=== PATIENT | female | born 1985 | race Caucasian/White ===

== ENCOUNTER 2016-11-08 18:40 | Emergency (ER) | payer OTHER ==
[2016-11-08 20:05] LABS: Hematocrit 38 % (35-47); Hemoglobin 12.7 g/dl (12.0-16.0); Mean Corpuscular HGB Conc 34 g/dl (31-36); Mean Corpuscular Hemoglobin 31 pg (27-31); Mean Corpuscular Volume 91 fL (80-97); Mean Platelet Volume 9 um3 (7.4-10.4); Red Blood Count 4.15 10^6/ul (4.0-5.4); Red Cell Distribution Width 13 % (10.5-15); White Blood Count 9.4 10^3/ul (3.5-10.8)
[2016-11-08 20:20] LABS: Albumin 4.3 g/dL (3.2-5.2); BUN/Creatinine Ratio 22.5 (8-20); Calcium 9.3 mg/dL (8.6-10.3); EGFR African American 107.6 (>60); EGFR Non-African American 83.7 (>60); Potassium 3.8 mmol/L (3.5-5.0); Total Bilirubin 0.4 mg/dL (0.2-1.0); Total Protein 7.3 g/dL (6.4-8.9)
[2016-11-08] MEDS ORDERED: Iohexol 350* (CONTRAST) 500 ML MDV IV ONE (20:25)
[2016-11-08 21:02] VITALS: BP 137/120
--- NOTE | 2016-11-08 21:03 | RAD ---
INDICATION: Chest pain. Back pain. COMPARISON: None back pain TECHNIQUE: Axial source images were obtained from the thoracic inlet to the hemidiaphragms following administration of [address] angiographic technique was utilized. Coronal and sagittal reconstructed images were acquired. CHEST FINDINGS: Neck/thyroid: The visualized neck to include the thyroid appear normal. Chest wall: There are no acute abnormalities of the bony thorax or chest wall. There is no supraclavicular, infraclavicular, or axillary lymphadenopathy. Lungs : There are no pulmonary parenchymal masses or infiltrates. The pulmonary interstitium appears normal. There are no endobronchial lesions. Cardiomediastinal structures: There is no CT evidence of acute pulmonary embolic disease. The heart is normal in size. There is no pericardial effusion. Although the examination was timed to evaluate for acute pulmonary embolus, there is also adequate systemic arterial opacification. There is no evidence of aortic aneurysm or dissection. There is no mediastinal or hilar adenopathy. The esophagus appears normal. Pleura : There are no pleural-based masses or effusions. Other: None. IMPRESSION: NO CT EVIDENCE OF ACUTE EMBOLIC DISEASE. ALTHOUGH THERE IS SUBOPTIMAL AORTIC OPACIFICATION, NO ABNORMALITIES ARE IDENTIFIED. LUNGS CLEAR.
--- NOTE | 2016-11-08 21:54 | ED ---
Heidy Gomez Michael, scribed for Saud Rome MD on 11/08/16 at 2004 . HPI Chest Pain - HPI Summary HPI Summary: 31 y/o female comes to the ED presenting with chest pain that started one day ago and worsened through out the day. The pt describes the chest pain as pressure/tightness. Earlier this afternoon the chest pressure radiated to the jaw and back, but currently it has slightly alleviated spontaneously. She also c /o diaphoresis and diarrhea. The pt denies SOB, flank pain, and abd pain. The PMHx is significant for vertebral artery dissections. - History of Current Complaint Chief Complaint: ED Time Seen by Provider: 11/08/16 19:46 Hx Obtained From: Patient, Medical Records Onset/Duration: Started Days Ago, Still Present Timing: Intermittent Initial Severity: Moderate Current Severity: Mild Pain Intensity: 0 Pain Scale Used: 0-10 Numeric Chest Pain Location: Diffuse Chest Pain Radiates: Yes Chest Pain Radiates To:: Back, Jaw Character: Pressure/Squeezing, Tightness Aggravating Factor(s): Nothing Alleviating Factor(s): Spontaneous Resolution Associated Signs and Symptoms: Positive: Negative - flank pain, Chest Pain, Diaphoresis, Other: - diarrhea. Negative: Shortness of Breath, Abdominal Pain - Additional Pertinent History Primary Care Physician: [id number] - Allergy/Home Medications Allergies/Adverse Reactions: Allergies Allergy/AdvReac Type Severity Reaction Status Date / Time Amoxicillin Allergy Hives Verified 11/08/16 20:04 Erythromycin Allergy Hives Verified 11/08/16 20:04 Penicillin G Allergy Hives Verified 11/08/16 20:04 Sulfa Antibiotics Allergy Hives Verified 11/08/16 20:04 Tetracycline Allergy Hives Verified 11/08/16 20:04 pediasole Allergy Hives Uncoded 11/08/16 20:04 Home Medications: Home Medications Naproxen [Naproxen 500 MG TABS] 500 mg PO BID 11/08/16 [History Confirmed ] PMH/Surg Hx/FS Hx/Imm Hx Endocrine/Hematology History: Reports: Hx Anemia - current Denies: Hx Diabetes, Hx Systemic Lupus Erythematosus Cardiovascular History: Reports: Hx Syncope - in the ED this visit Denies: Hx Congestive Heart Failure, Hx Hypertension, Hx Pacemaker/ICD GI History: Reports: Hx Gastroesophageal Reflux Disease, Hx Hiatal Hernia History: Reports: Other Problems/Disorders - frequent blood in urine and frequent urination Denies: Hx Dialysis, Hx Renal Disease Musculoskeletal History: Denies: Hx Rheumatoid Arthritis Sensory History: Denies: Hx Hearing Aid Neurological History: Reports: Hx Headaches, Hx Migraine, Hx Transient Ischemic Attacks (TIA) Psychiatric History: Reports: Hx Anxiety Denies: Hx Panic Disorder - Surgical History Surgery Procedure, Year, and Place: RT KNEE MENISCUS & ACL RECONSTRUCTION 05/2014 ; DOUBLE HERNIA; WISDOM TEETH, Abdominal surgery to drain internal bleeding March 2016 [facility] Hx Anesthesia Reactions: No Infectious Disease History: No Infectious Disease History: Denies: Traveled Outside the [place] in Last 30 Days - Family History Known Family History: Positive: None - Social History Occupation: Employed Full-time Lives: With Family Alcohol Use: Rare Substance Use Type: Reports: None Smoking Status (MU): Never Smoked Tobacco Type: Cigarettes Review of Systems Positive: Skin Diaphoresis. Negative: Fever Positive: Chest Pain Negative: Shortness Of Breath Positive: Diarrhea. Negative: Abdominal Pain Negative: flank pain All Other Systems Reviewed And Are Negative: Yes Physical Exam - Summary Physical Exam Summary: General: Comfortable, pleasant, alert HEENT: Moist mucosa Neck: soft, supple, no adenopathy, no edema Heart: S1, S2, RRR, no murmurs, rubs, or gallops, bilateral radial carotid pulses 2+, no carotid bruits Lungs: Clear to auscultation, breathing comfortable, no wheezes or rales Abdominal: Soft, flat, nontender Extremities: No edema, no calf tenderness, negative Homans sign Neuro: Alert and oriented x 3 Psych: Logical, coherent Triage Information Reviewed: Yes Vital Signs On Initial Exam: Initial Vitals Temp Pulse Resp BP Pulse Ox 98.6 F 68 18 118/89 98 11/08/16 18:49 11/08/16 18:49 11/08/16 18:49 11/08/16 18:49 11/08/16 18:49 Vital Signs Reviewed: Yes Diagnostics - Vital Signs Vital Signs Temp Pulse Resp BP Pulse Ox 11/08/16 18:49 98.6 F 68 18 118/89 98 - Laboratory Lab Results: Lab Results 11/08/16 11/08/16 Range/Units 19:55 19:55 WBC 9.4 (3.5-10.8) 10^3/ul RBC 4.15 (4.0-5.4) 10^6/ul Hgb 12.7 (12.0-16.0) g/dl Hct 38 (35-47) % MCV 91 (80-97) fL MCH 31 (27-31) pg MCHC 34 (31-36) g/dl RDW 13 (10.5-15) % Plt Count 274 (150-450) 10^3/ul MPV 9 (7.4-10.4) um3 Neut % (Auto) 55.6 (38-83) % Lymph % (Auto) 35.6 (25-47) % Pettis % (Auto) 5.9 (1-9) % Eos % (Auto) 1.8 (0-6) % Baso % (Auto) 1.1 (0-2) % Absolute Neuts (auto) 5.2 (1.5-7.7) 10^3/ul Absolute Lymphs (auto) 3.3 (1.0-4.8) 10^3/ul Absolute Monos (auto) 0.6 (0-0.8) 10^3/ul Absolute Eos (auto) 0.2 (0-0.6) 10^3/ul Absolute Basos (auto) 0.1 (0-0.2) 10^3/ul Absolute Nucleated RBC 0 10^3/ul Nucleated RBC % 0 Sodium 135 (133-145) mmol/L Potassium 3.8 (3.5-5.0) mmol/L Chloride 103 (101-111) mmol/L Carbon Dioxide 27 (22-32) mmol/L Anion Gap 5 (2-11) mmol/L BUN 18 (6-24) mg/dL Creatinine 0.80 (0.51-0.95) mg/dL Est GFR ( Amer) 107.6 (>60) Est GFR (Non-Af Amer) 83.7 (>60) BUN/Creatinine Ratio 22.5 H (8-20) Glucose 93 (70-100) mg/dL Calcium 9.3 (8.6-10.3) mg/dL Total Bilirubin 0.40 (0.2-1.0) mg/dL AST 14 (13-39) U/L ALT 11 (7-52) U/L Alkaline Phosphatase 74 (34-104) U/L Troponin I 0.00 (<0.04) ng/mL Total Protein 7.3 (6.4-8.9) g/dL Albumin 4.3 (3.2-5.2) g/dL Globulin 3.0 (2-4) g/dL Albumin/Globulin Ratio 1.4 (1-3) Result Diagrams: 11/08/16 19:55 11/08/16 19:55 Lab Statement: Any lab studies that have been ordered have been reviewed, and results considered in the medical decision making process. - CT CTA Chest/Thorax CT Interpretation: No Acute Changes - NO CT EVIDENCE OF ACUTE EMBOLIC DISEASE. ALTHOUGH THERE IS SUBOPTIMAL AORTIC OPACIFICATION, NO ABNORMALITIES ARE IDENTIFIED. LUNGS CLEAR. CT Interpretation Completed By: Radiologist - EKG EK EKG Rhythm: Sinus Rhythm EKG Interpretation: no st changes Chest Pain Course/Dx - Course Assessment/Plan: Chest pressure started last night and continued into today. It was waxing and waning. And non pleuriting. Somewhat involved in upper back pain. No hx of CAD, but she does have vertebral artery dissection. Shes on Plavix and well protected against occlusive coronary events. The discomfort is atypical most concerned with dissection and CTA is mostly normal. She will be discharged home and return for worsening symptoms. - Chest Pain Differential Diagnosis/HQI/PQRI: Acute UT, Angina, Lower Respiratory Infection, Pulmonary Edema, Pulmonary Embolism - Diagnoses Provider Diagnoses: Chest pain Discharge - Discharge Plan Condition: Good Disposition: HOME Patient Education Materials: Noncardiac Chest Pain (ED) Referrals: Luli Macdonald MD [Primary Care Provider] - 1 Day The documentation as recorded by the Heidy peres Michael accurately reflects the service I personally performed and the decisions made by Latricia powers Farzad, MD.
== END 2016-11-08 21:06 | disposition home or self-care (01) ==
LOC: ED 18:40
DX: R07.9 Chest pain, unspecified (principal); D64.9 Anemia, unspecified; Z88.0 Allergy status to penicillin
CPT/HCPCS: 36415; 71275; 80053; 84484; 85025; 93005; Q9967

== ENCOUNTER 2016-11-16 11:43 | Emergency (ER) | payer OTHER ==
[2016-11-16] MEDS ORDERED: NS 0.9% 1000 ML* 1,000 ML IV SCH (12:15)
[2016-11-16 13:07] LABS: Urine Bacteria Absent (Absent); Urine Bilirubin Negative (Negative); Urine Glucose Negative (Negative); Urine Nitrite Negative (Negative)
[2016-11-16 13:22] LABS: Hematocrit 39 % (35-47); Hemoglobin 13.1 g/dl (12.0-16.0); Mean Corpuscular HGB Conc 34 g/dl (31-36); Mean Corpuscular Hemoglobin 31 pg (27-31); Mean Corpuscular Volume 91 fL (80-97); Mean Platelet Volume 10 um3 (7.4-10.4); Red Blood Count 4.25 10^6/ul (4.0-5.4); Red Cell Distribution Width 14 % (10.5-15); White Blood Count 7.9 10^3/ul (3.5-10.8)
[2016-11-16 13:34] LABS: ALT 12 U/L (7-52); AST 13 U/L (13-39); Albumin 4.5 g/dL (3.2-5.2); Alkaline Phosphatase 66 U/L (34-104); Anion Gap 7 mmol/L (2-11); BUN/Creatinine Ratio 16.3 (8-20); Blood Urea Nitrogen 13 mg/dL (6-24); C Reactive Protein 1.26 mg/L (< 5.00); CO2 Carbon Dioxide 23 mmol/L (22-32); Calcium 9.7 mg/dL (8.6-10.3); Chloride 105 mmol/L (101-111); Creatine Kinase 17 U/L (10-223); EGFR African American 107.6 (>60); EGFR Non-African American 83.7 (>60); Globulin 3.1 g/dL (2-4); Glucose 79 mg/dL (70-100); Lipase 14 U/L (11.0-82.0); Magnesium 2.1 mg/dL (1.9-2.7); Potassium 3.7 mmol/L (3.5-5.0); Sodium 135 mmol/L (133-145); Total Protein 7.6 g/dL (6.4-8.9)
[2016-11-16 13:53] LABS: TSH (Thyroid Stimulating Horm) 2.86 mcIU/mL (0.34-5.60)
[2016-11-16 16:18] VITALS: BP 114/75
--- NOTE | 2016-11-16 19:34 | ED ---
Kailash Gomez Matthew, scribed for Pierre Brown MD on 11/16/16 at 1557 . HPI Chest Pain - HPI Summary HPI Summary: A 31 y/o female presents to the ED with chest pain across the chest since a week ago. The pain is currently rated 4/10 in severity. She was seen last week for a similar pain; however the pain has been gradually worsening. Associated symptoms include abdominal pain that started today and is described as sharp as well as mid back pain since 5 days ago that is worse on the left. She's also c/ o of fatigue. The patient denies SOB. She has a Hx of left and right vertebral artery dissections. She's also worried about an abnormal lab value, which she saw during her last work-up. - History of Current Complaint Chief Complaint: EDChestPainROMI Time Seen by Provider: 11/16/16 15:24 Hx Obtained From: Patient Onset/Duration: Started Weeks Ago, Atraumatic, Still Present Timing: Constant Initial Severity: Mild Current Severity: Moderate Pain Intensity: 4 Pain Scale Used: 0-10 Numeric Chest Pain Location: Mid Sternal - across the chest Chest Pain Radiates: No Aggravating Factor(s): Nothing Alleviating Factor(s): Nothing Associated Signs and Symptoms: Positive: Chest Pain, Back Pain - mid; worse on the left, Abdominal Pain - dsecribed as sharp, Other: - fatigue. Negative: Shortness of Breath - Additional Pertinent History Primary Care Physician: [id number] - Allergy/Home Medications Allergies/Adverse Reactions: Allergies Allergy/AdvReac Type Severity Reaction Status Date / Time Amoxicillin Allergy Hives Verified 11/16/16 11:54 Erythromycin Allergy Hives Verified 11/16/16 11:54 Penicillin G Allergy Hives Verified 11/16/16 11:54 Sulfa Antibiotics Allergy Hives Verified 11/16/16 11:54 Tetracycline Allergy Hives Verified 11/16/16 11:54 pediasole Allergy Hives Uncoded 11/08/16 20:04 Home Medications: Home Medications Clopidogrel TAB* [Plavix TAB*] 75 mg PO DAILY 11/16/16 [History Confirmed ] Diazepam TAB(*) [Valium TAB(*)] 5 mg PO BID PRN 11/16/16 [History Confirmed ] Naproxen TAB* [Naprosyn TAB*] 250 mg PO Q8H PRN 11/16/16 [History Confirmed ] PMH/Surg Hx/FS Hx/Imm Hx Endocrine/Hematology History: Reports: Hx Anemia - current Denies: Hx Diabetes, Hx Systemic Lupus Erythematosus Cardiovascular History: Reports: Hx Syncope - in the ED this visit Denies: Hx Congestive Heart Failure, Hx Hypertension, Hx Pacemaker/ICD GI History: Reports: Hx Gastroesophageal Reflux Disease, Hx Hiatal Hernia History: Reports: Other Problems/Disorders - frequent blood in urine and frequent urination Denies: Hx Dialysis, Hx Renal Disease Musculoskeletal History: Denies: Hx Rheumatoid Arthritis Sensory History: Denies: Hx Hearing Aid Neurological History: Reports: Hx Headaches, Hx Migraine, Hx Transient Ischemic Attacks (TIA) Psychiatric History: Reports: Hx Anxiety Denies: Hx Panic Disorder - Surgical History Surgery Procedure, Year, and Place: RT KNEE MENISCUS & ACL RECONSTRUCTION 05/2014 ; DOUBLE HERNIA; WISDOM TEETH, Abdominal surgery to drain internal bleeding March 2016 [facility] Hx Anesthesia Reactions: No - Immunization History Date of Tetanus Vaccine: utd Date of Influenza Vaccine: none Infectious Disease History: No Infectious Disease History: Denies: Traveled Outside the [place] in Last 30 Days - Family History Known Family History: Positive: None - Social History Alcohol Use: Rare Substance Use Type: Reports: None Smoking Status (MU): Never Smoked Tobacco Type: Cigarettes Review of Systems Constitutional: Negative Eyes: Negative ENT: Negative Positive: Chest Pain Respiratory: Negative Negative: Shortness Of Breath Positive: Abdominal Pain Genitourinary: Negative Positive: Myalgia - mid back pain Skin: Negative Neurological: Negative Psychological: Normal All Other Systems Reviewed And Are Negative: Yes Physical Exam Triage Information Reviewed: Yes Vital Signs On Initial Exam: Initial Vitals Temp Pulse Resp BP Pulse Ox 98.1 F 84 16 139/77 100 11/16/16 11:47 11/16/16 11:47 11/16/16 11:47 11/16/16 11:47 11/16/16 11:47 Vital Signs Reviewed: Yes Appearance: Positive: Well-Appearing, No Pain Distress Skin: Positive: Warm, Skin Color Reflects Adequate Perfusion, Dry Head/Face: Positive: Normal Head/Face Inspection Eyes: Positive: EOMI, JENY ENT: Positive: Normal ENT inspection Neck: Positive: Supple, Nontender Respiratory/Lung Sounds: Positive: Clear to Auscultation, Breath Sounds Present Cardiovascular: Positive: RRR Abdomen Description: Positive: Soft, Other: - mild RUQ tenderness Bowel Sounds: Positive: Present Musculoskeletal: Positive: Normal, Strength/ROM Intact Neurological: Positive: Normal, Sensory/Motor Intact, Alert, Oriented to Person Place, Time Psychiatric: Positive: Normal, Affect/Mood Appropriate Diagnostics - Vital Signs Vital Signs Temp Pulse Resp BP Pulse Ox 11/16/16 15:00 68 17 119/64 99 11/16/16 14:30 67 15 120/70 98 11/16/16 14:00 65 18 128/108 100 11/16/16 13:30 64 19 125/77 99 11/16/16 13:12 25 82 11/16/16 13:11 125/89 11/16/16 12:34 76 14 98 11/16/16 12:31 75 20 112/68 96 11/16/16 12:26 68 12 113/74 97 11/16/16 12:25 74 13 117/78 97 11/16/16 12:19 15 11/16/16 11:50 98.1 F 87 16 138/86 98 11/16/16 11:47 98.1 F 84 16 139/77 100 - Laboratory Lab Results: Lab Results 11/16/16 11/16/16 11/16/16 Range/Units 12:17 13:00 13:00 WBC 7.9 (3.5-10.8) 10^3/ul RBC 4.25 (4.0-5.4) 10^6/ul Hgb 13.1 (12.0-16.0) g/dl Hct 39 (35-47) % MCV 91 (80-97) fL MCH 31 (27-31) pg MCHC 34 (31-36) g/dl RDW 14 (10.5-15) % Plt Count 268 (150-450) 10^3/ul MPV 10 (7.4-10.4) um3 Neut % (Auto) 62.7 (38-83) % Lymph % (Auto) 29.2 (25-47) % Adams % (Auto) 5.2 (1-9) % Eos % (Auto) 1.7 (0-6) % Baso % (Auto) 1.2 (0-2) % Absolute Neuts (auto) 4.9 (1.5-7.7) 10^3/ul Absolute Lymphs (auto) 2.3 (1.0-4.8) 10^3/ul Absolute Monos (auto) 0.4 (0-0.8) 10^3/ul Absolute Eos (auto) 0.1 (0-0.6) 10^3/ul Absolute Basos (auto) 0.1 (0-0.2) 10^3/ul Absolute Nucleated RBC 0 10^3/ul Nucleated RBC % 0.1 INR (Anticoag Therapy) 1.00 (0.89-1.11) APTT 33.7 (26.0-36.3) seconds D-Dimer, Quantitative < 200 (Less Than 230) ng/mL Sodium (133-145) mmol/L Potassium (3.5-5.0) mmol/L Chloride (101-111) mmol/L Carbon Dioxide (22-32) mmol/L Anion Gap (2-11) mmol/L BUN (6-24) mg/dL Creatinine (0.51-0.95) mg/dL Est GFR ( Amer) (>60) Est GFR (Non-Af Amer) (>60) BUN/Creatinine Ratio (8-20) Glucose (70-100) mg/dL Lactic Acid (0.5-2.0) mmol/L Calcium (8.6-10.3) mg/dL Magnesium (1.9-2.7) mg/dL Total Bilirubin (0.2-1.0) mg/dL AST (13-39) U/L ALT (7-52) U/L Alkaline Phosphatase (34-104) U/L Total Creatine Kinase (10-223) U/L CK-MB (CK-2) (0.6-6.3) ng/mL Troponin I (<0.04) ng/mL C-Reactive Protein (< 5.00) mg/L Total Protein (6.4-8.9) g/dL Albumin (3.2-5.2) g/dL Globulin (2-4) g/dL Albumin/Globulin Ratio (1-3) Lipase (11.0-82.0) U/L TSH (0.34-5.60) mcIU/mL Beta HCG, Quant mIU/mL Urine Color Straw Urine Appearance Clear Urine pH 6.0 (5-9) Ur Specific [place] 1.009 L (1.010-1.030) Urine Protein Negative (Negative) Urine Ketones Negative (Negative) Urine Blood 1+ H (Negative) Urine Nitrate Negative (Negative) Urine Bilirubin Negative (Negative) Urine Urobilinogen Negative (Negative) Ur Leukocyte Esterase Negative (Negative) Urine WBC (Auto) Absent (Absent) Urine RBC (Auto) Trace(0-2/hpf) (Absent) Ur Squamous Epith Cells Present H (Absent) Urine Bacteria Absent (Absent) Urine Glucose Negative (Negative) 11/16/16 11/16/16 Range/Units 13:00 13:00 WBC (3.5-10.8) 10^3/ul RBC (4.0-5.4) 10^6/ul Hgb (12.0-16.0) g/dl Hct (35-47) % MCV (80-97) fL MCH (27-31) pg MCHC (31-36) g/dl RDW (10.5-15) % Plt Count (150-450) 10^3/ul MPV (7.4-10.4) um3 Neut % (Auto) (38-83) % Lymph % (Auto) (25-47) % Adams % (Auto) (1-9) % Eos % (Auto) (0-6) % Baso % (Auto) (0-2) % Absolute Neuts (auto) (1.5-7.7) 10^3/ul Absolute Lymphs (auto) (1.0-4.8) 10^3/ul Absolute Monos (auto) (0-0.8) 10^3/ul Absolute Eos (auto) (0-0.6) 10^3/ul Absolute Basos (auto) (0-0.2) 10^3/ul Absolute Nucleated RBC 10^3/ul Nucleated RBC % INR (Anticoag Therapy) (0.89-1.11) APTT (26.0-36.3) seconds D-Dimer, Quantitative (Less Than 230) ng/mL Sodium 135 (133-145) mmol/L Potassium 3.7 (3.5-5.0) mmol/L Chloride 105 (101-111) mmol/L Carbon Dioxide 23 (22-32) mmol/L Anion Gap 7 (2-11) mmol/L BUN 13 (6-24) mg/dL Creatinine 0.80 (0.51-0.95) mg/dL Est GFR ( Amer) 107.6 (>60) Est GFR (Non-Af Amer) 83.7 (>60) BUN/Creatinine Ratio 16.3 (8-20) Glucose 79 (70-100) mg/dL Lactic Acid 1.2 (0.5-2.0) mmol/L Calcium 9.7 (8.6-10.3) mg/dL Magnesium 2.1 (1.9-2.7) mg/dL Total Bilirubin 0.70 (0.2-1.0) mg/dL AST 13 (13-39) U/L ALT 12 (7-52) U/L Alkaline Phosphatase 66 (34-104) U/L Total Creatine Kinase 17 (10-223) U/L CK-MB (CK-2) 0.6 (0.6-6.3) ng/mL Troponin I 0.00 (<0.04) ng/mL C-Reactive Protein 1.26 (< 5.00) mg/L Total Protein 7.6 (6.4-8.9) g/dL Albumin 4.5 (3.2-5.2) g/dL Globulin 3.1 (2-4) g/dL Albumin/Globulin Ratio 1.5 (1-3) Lipase 14 (11.0-82.0) U/L TSH 2.86 (0.34-5.60) mcIU/mL Beta HCG, Quant < 0.60 mIU/mL Urine Color Urine Appearance Urine pH (5-9) Ur Specific [place] (1.010-1.030) Urine Protein (Negative) Urine Ketones (Negative) Urine Blood (Negative) Urine Nitrate (Negative) Urine Bilirubin (Negative) Urine Urobilinogen (Negative) Ur Leukocyte Esterase (Negative) Urine WBC (Auto) (Absent) Urine RBC (Auto) (Absent) Ur Squamous Epith Cells (Absent) Urine Bacteria (Absent) Urine Glucose (Negative) Result Diagrams: 11/16/16 13:00 11/16/16 13:00 Lab Statement: Any lab studies that have been ordered have been reviewed, and results considered in the medical decision making process. - EKG 12:10 Cardiac Rate: NL - 63 bpm EKG Rhythm: Sinus Rhythm Re-Evaluation - Re-Evaluation First Eval Re-Evaluation Time: 16:10 Comment: Discussed the case with the patient and the possiblity of an MRI. She declined the MRI and will follow-up with Dr. Macdonald. Chest Pain Course/Dx - Course Assessment/Plan: Daisy Moreau presented primarily with the concern that she is having an aortic dissection. She has had upper chest pain for at least a week and some pain into her back on the left for 5 days and this morning she had some epigastric pain that has since resolved. She was evaluated here in the ED on the with labs and a CTA that was a suboptimal study (PE protocol ) but read by the radiologist as negative for dissection. Her repeat labs tocay were also negative including a d-dimer. She has no abdominal tenderness and I think the likelihood of a dissection is very low. I reassured her and discussed the case with Dr. Macdonald who recommended an MRI if the patient wanted more reassurance. After discussing this with Daisy, she declined the MRI and will follow-up with Dr. Macdonald. - Diagnoses Provider Diagnoses: CHEST PAIN - Provider Notifications Discussed Care Of Patient With: Dr. Macdonald (PCP) at 16:02 -- Notified of patient's history and recommends MRI if the patient would like more reassurance. Discharge - Discharge Plan Condition: Stable Disposition: HOME Patient Education Materials: Chest Pain (ED) Referrals: Luli Macdonald MD [Primary Care Provider] - (Please follow-up with Dr. Macdonald this week. ) Additional Instructions: Please follow-up with Dr. Macdonald within the week. The documentation as recorded by the Kailash peres Matthew accurately reflects the service I personally performed and the decisions made by me, Pierre Brown MD.
== END 2016-11-16 16:26 | disposition home or self-care (01) ==
LOC: ED 11:43
DX: R07.9 Chest pain, unspecified (principal); Z86.73 Personal history of transient ischemic attack (TIA), and cerebral infarction without residual deficits; F41.9 Anxiety disorder, unspecified; Z88.0 Allergy status to penicillin; Z88.2 Allergy status to sulfonamides; K21.9 Gastro-esophageal reflux disease without esophagitis; D64.9 Anemia, unspecified; Z79.02 Long term (current) use of antithrombotics/antiplatelets
CPT/HCPCS: 36415; 80053; 81003; 81015; 82550; 82553; 83605; 83690; 83735; 84443; 84484; 84702; 85025; 85379; 85610; 85730; 86140; 93005; 99283

== ENCOUNTER 2017-02-14 20:58 | Emergency (ER) | payer OTHER ==
[2017-02-14] MEDS ORDERED: Ondansetron INJ* 2 MG/ML VIAL IV ONE (21:45)
[2017-02-14] MEDS ORDERED: NS 0.9% 1000 ML* 1,000 ML IV SCH (21:45)
[2017-02-14 22:04] LABS: Hematocrit 40 % (35-47); Mean Corpuscular HGB Conc 33 g/dl (31-36); Mean Corpuscular Hemoglobin 30 pg (27-31); Mean Corpuscular Volume 90 fL (80-97); Mean Platelet Volume 9 um3 (7.4-10.4); Red Cell Distribution Width 14 % (10.5-15); White Blood Count 12.8 10^3/ul (3.5-10.8)
[2017-02-14 22:20] LABS: ALT 16 U/L (7-52); AST 17 U/L (13-39); Albumin 4.5 g/dL (3.2-5.2); Alkaline Phosphatase 66 U/L (34-104); Anion Gap 8 mmol/L (2-11); BUN/Creatinine Ratio 12.4 (8-20); Blood Urea Nitrogen 13 mg/dL (6-24); C Reactive Protein 1.71 mg/L (< 5.00); CO2 Carbon Dioxide 25 mmol/L (22-32); Calcium 9.6 mg/dL (8.6-10.3); Chloride 104 mmol/L (101-111); EGFR African American 78.6 (>60); EGFR Non-African American 61.1 (>60); Globulin 3.4 g/dL (2-4); Glucose 87 mg/dL (70-100); Lipase 18 U/L (11.0-82.0); Sodium 137 mmol/L (133-145); Total Protein 7.9 g/dL (6.4-8.9)
[2017-02-14] MEDS ORDERED: Iohexol 350* (CONTRAST) 500 ML MDV IV ONE (22:23)
[2017-02-14 22:39] LABS: TSH (Thyroid Stimulating Horm) 3.24 mcIU/mL (0.34-5.60)
--- NOTE | 2017-02-14 23:00 | RAD ---
HISTORY: Headache, neck pain, history of vertebral artery dissection COMPARISONS: September 06, 2016 TECHNIQUE: Multiple contiguous axial CT scans were obtained of the head before and after and of the neck neck After the administration of nonionic intravenous contrast timed to the systemic arterial phase of contrast enhancement. Coronal and sagittal multiplanar reformations are submitted for review. Multiple 3-D maximum intensity projection reconstructions are also submitted for review. FINDINGS: CTA NECK: AORTIC ARCH: There is a normal three-vessel branching pattern of the aortic arch. There is no ostial or proximal stenosis of the cephalic great vessels. RIGHT VERTEBRAL ARTERY: Again noted is a small linear filling defect suggestive of a previous dissection of the V2 segment of the right vertebral artery. This is stable from LEFT VERTEBRAL ARTERY: The left vertebral artery is patent along its course, without stenosis. DOMINANCE: The vertebral arteries are codominant. RIGHT COMMON CAROTID ARTERY: The right common carotid artery is patent. The right carotid bifurcation occurs at C3-C4 RIGHT INTERNAL CAROTID ARTERY: There is no right internal carotid artery stenosis by NASCET criteria. RIGHT EXTERNAL CAROTID ARTERY: The right external carotid artery is unremarkable. LEFT COMMON CAROTID ARTERY: The left common carotid artery is patent. The left carotid bifurcation occurs at C3-C4 LEFT INTERNAL CAROTID ARTERY: There is no left internal carotid artery stenosis by NASCET criteria. LEFT EXTERNAL CAROTID ARTERY: The left external carotid artery is unremarkable. VENOUS CIRCULATION: The venous system is unremarkable. SALIVARY GLANDS: The parotid glands, submandibular glands, sublingual glands are normal. NASAL CAVITY/NASOPHARYNX: The nasal cavity and nasopharynx are normal. ORAL CAVITY/OROPHARYNX: The oral cavity is obscured by streak artifact from dental amalgam. The visualized oral cavity and oropharynx are unremarkable. LARYNGEAL APPARATUS/HYPOPHARYNX: The laryngeal apparatus and hypopharynx are normal. UPPER AIRWAY/UPPER ESOPHAGUS: The visualized upper airway and esophagus are normal. LUNG APICES: The lung apices are clear. THYROID GLAND: The thyroid gland is normal. LYMPH NODES: There is no lymphadenopathy by size criteria. BONES AND SOFT TISSUES: No bone or soft tissue abnormalities are noted. CTA HEAD: INTRACRANIAL CIRCULATION: There is no aneurysm, vascular malformation, occlusion, or stenosis of the visualized intracranial circulation. The anterior communicating artery complex is clear. Bilateral posterior communicating arteries are identified. VENOUS CIRCULATION: The venous system is unremarkable. PERFUSION: There is no obvious parenchymal perfusion deficit. HEMORRHAGE/INFARCT: There is no hemorrhage or acute infarct. MASSES/SHIFT: There is no mass or shift. EXTRA-AXIAL SPACES: There are no extra-axial fluid collections. SULCI AND VENTRICLES: The sulci and ventricles are normal in size and position for the patient's stated age. CEREBRUM: There are no focal parenchymal abnormalities. BRAINSTEM: There are no focal parenchymal abnormalities. CEREBELLUM: There are no focal parenchymal abnormalities. PARANASAL SINUSES: The paranasal sinuses are clear. ORBITS: The orbits are unremarkable. BONES AND SOFT TISSUE: No bone or soft tissue abnormalities are noted. OTHER: There is no abnormal enhancement. IMPRESSION: 1. AGAIN NOTED ARE FINDINGS SUGGESTIVE OF REMOTE DISSECTION OF THE RIGHT VERTEBRAL ARTERY WITHOUT CHANGE FROM THE PREVIOUS EXAMINATION. 2. NO INTERNAL CAROTID ARTERY STENOSIS BY NASCET CRITERIA. 3. NO ANEURYSM, VASCULAR MALFORMATION, OCCLUSION, OR STENOSIS OF THE VISUALIZED INTRACRANIAL CIRCULATION. CPT II Codes: 3100F
[2017-02-14 23:37] VITALS: BP 126/79
--- NOTE | 2017-02-15 07:45 | RAD ---
INDICATION: Right-sided pelvic pain. COMPARISON: Comparison is made with a prior pelvic ultrasound from July 30, 2016. TECHNIQUE: Multiple real-time transvaginal images of the pelvis were obtained. FINDINGS: The uterus is normal in size, shape and echogenicity. The uterus measured 8.1 x 3.7 x 5.3 cm. The endometrial echo measured 1.0 cm in thickness. The right ovary measured 3.3 x 1.8 x 2.1 cm. The left ovary measured 3.6 x 2.4 x 2.4 cm. There is vascular flow within both ovaries. No free intraperitoneal fluid is seen. IMPRESSION: NEGATIVE EXAM.
--- NOTE | 2017-02-19 17:51 | ED ---
Nicolas Gomez Claudia, scribed for Georges Blanco MD on 02/14/17 at 2121 . Headache - HPI Summary HPI Summary: 31 year old female presents to the ED with MCCARTHY. Pt describes the MCCARTHY as a typical migraine (8/10 initially, 5-6/10 currently). 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 Pt notes that the MCCARTHY started yesterday, with some vomiting (which has resolved) and has continued intermittently since. She notes that today she began having a "gripping" CP in her left anterior chest this afternoon with the MCCARTHY which concerned her. She states the CP was intermittent and she notes the pain 5/10. Pt also notes nausea, photophobia and some suprapubic abd pain. The pt denies any neck pain tonight which was severe to the point she was unable to move her neck during the time of her dissection. Pt notes that she frequently has ovarian cysts and a few years ago one hemorrhaged and she had some left anterior chest/shoulder pain due to that which is also concerning her since she had some abd pain/"cyst pain" over the past week. The pt was suppose to receive an US for this suprapubic pain on Tuesday but missed her appt. Pt denies any vaginal discharge and notes her last menstrual cycle about 3 weeks ago. Pt does take plavix for the dissection. - History Of Current Complaint Chief Complaint: EDHeadache Stated Complaint: MIGRAINE/2 DAYS Time Seen by Provider: 02/14/17 21:13 Hx Obtained From: Patient Hx Last Menstrual Period: Approximately 10 days ago. Onset/Duration: Gradual Onset, Started days ago, Still Present Initially Headache Was: Initial Pain Scale(0-10)= - 8/10 Currently Pain Is: Current Pain Scale(0-10)= - 5-6/10 Timing: Constant Character: Migraine Aggravating Factor: Nothing Allevating Factors: Nothing Associated Signs And Symptoms: Nausea - Allergies/Home Medications Allergies/Adverse Reactions: Allergies Allergy/AdvReac Type Severity Reaction Status Date / Time Amoxicillin Allergy Hives Verified 11/16/16 11:54 Erythromycin Allergy Hives Verified 11/16/16 11:54 Penicillin G Allergy Hives Verified 11/16/16 11:54 Sulfa Antibiotics Allergy Hives Verified 11/16/16 11:54 Tetracycline Allergy Hives Verified 11/16/16 11:54 pediasole Allergy Hives Uncoded 11/08/16 20:04 PMH/Surg Hx/FS Hx/Imm Hx Previously Healthy: Yes Endocrine/Hematology History: Reports: Hx Anemia - current Denies: Hx Diabetes, Hx Systemic Lupus Erythematosus Cardiovascular History: Reports: Hx Syncope - in the ED this visit Denies: Hx Congestive Heart Failure, Hx Hypertension, Hx Pacemaker/ICD GI History: Reports: Hx Gastroesophageal Reflux Disease, Hx Hiatal Hernia History: Reports: Other Problems/Disorders - frequent blood in urine and frequent urination Denies: Hx Dialysis, Hx Renal Disease Musculoskeletal History: Denies: Hx Rheumatoid Arthritis Sensory History: Denies: Hx Hearing Aid Neurological History: Reports: Hx Headaches, Hx Migraine, Hx Transient Ischemic Attacks (TIA) Psychiatric History: Reports: Hx Anxiety Denies: Hx Panic Disorder - Surgical History Surgery Procedure, Year, and Place: RT KNEE MENISCUS & ACL RECONSTRUCTION 05/2014 ; DOUBLE HERNIA; WISDOM TEETH, Abdominal surgery to drain internal bleeding March 2016 [facility] Hx Anesthesia Reactions: No - Immunization History Date of Tetanus Vaccine: utd Date of Influenza Vaccine: none Infectious Disease History: No Infectious Disease History: Denies: Traveled Outside the [place] in Last 30 Days - Family History Known Family History: Negative: Cardiac Disease, Hypertension, Diabetes - Social History Occupation: Employed Full-time Lives: With Family Alcohol Use: Rare Substance Use Type: Reports: None Smoking Status (MU): Never Smoked Tobacco Type: Cigarettes Review of Systems Constitutional: Negative Negative: Fever, Chills Positive: Photophobia ENT: Negative Positive: Chest Pain - left anterior CP Respiratory: Negative Positive: Abdominal Pain - suprapubic , Nausea Genitourinary: Negative Musculoskeletal: Negative Skin: Negative Positive: Headache Psychological: Normal All Other Systems Reviewed And Are Negative: Yes Physical Exam Triage Information Reviewed: Yes Vital Signs On Initial Exam: Initial Vitals Temp Pulse Resp BP Pulse Ox 98.0 F 74 16 141/64 99 02/14/17 20:59 02/14/17 20:59 02/14/17 20:59 02/14/17 20:59 02/14/17 20:59 Vital Signs Reviewed: Yes Appearance: Positive: Well-Appearing, No Pain Distress - no acute pain distress Skin: Positive: Warm, Skin Color Reflects Adequate Perfusion, Dry Head/Face: Positive: Normal Head/Face Inspection Eyes: Positive: EOMI, JENY ENT: Positive: Normal ENT inspection Neck: Positive: Supple, Nontender Respiratory/Lung Sounds: Positive: Clear to Auscultation, Breath Sounds Present Cardiovascular: Positive: RRR Abdomen Description: Positive: Nontender, Soft Bowel Sounds: Positive: Present Musculoskeletal: Positive: Normal, Strength/ROM Intact Neurological: Positive: Normal, Sensory/Motor Intact, Alert, Oriented to Person Place, Time Psychiatric: Positive: Affect/Mood Appropriate Diagnostics - Vital Signs Vital Signs Temp Pulse Resp BP Pulse Ox 02/14/17 21:01 98.0 F 71 16 141/84 98 02/14/17 20:59 98.0 F 74 16 141/64 99 - Laboratory Lab Results: Lab Results 02/14/17 02/14/17 02/14/17 Range/Units 21:55 21:55 21:55 WBC 12.8 H (3.5-10.8) 10^3/ul RBC 4.40 (4.0-5.4) 10^6/ul Hgb 13.0 (12.0-16.0) g/dl Hct 40 (35-47) % MCV 90 (80-97) fL MCH 30 (27-31) pg MCHC 33 (31-36) g/dl RDW 14 (10.5-15) % Plt Count 311 (150-450) 10^3/ul MPV 9 (7.4-10.4) um3 Neut % (Auto) 63.1 (38-83) % Lymph % (Auto) 27.9 (25-47) % [place] % (Auto) 6.5 (1-9) % Eos % (Auto) 1.3 (0-6) % Baso % (Auto) 1.2 (0-2) % Absolute Neuts (auto) 8.1 H (1.5-7.7) 10^3/ul Absolute Lymphs (auto) 3.6 (1.0-4.8) 10^3/ul Absolute Monos (auto) 0.8 (0-0.8) 10^3/ul Absolute Eos (auto) 0.2 (0-0.6) 10^3/ul Absolute Basos (auto) 0.2 (0-0.2) 10^3/ul Absolute Nucleated RBC 0 10^3/ul Nucleated RBC % 0 INR (Anticoag Therapy) 0.93 (0.89-1.11) APTT 34.7 (26.0-36.3) seconds Sodium 137 (133-145) mmol/L Potassium 4.0 (3.5-5.0) mmol/L Chloride 104 (101-111) mmol/L Carbon Dioxide 25 (22-32) mmol/L Anion Gap 8 (2-11) mmol/L BUN 13 (6-24) mg/dL Creatinine 1.05 H (0.51-0.95) mg/dL Est GFR ( Amer) 78.6 (>60) Est GFR (Non-Af Amer) 61.1 (>60) BUN/Creatinine Ratio 12.4 (8-20) Glucose 87 (70-100) mg/dL Lactic Acid (0.5-2.0) mmol/L Calcium 9.6 (8.6-10.3) mg/dL Total Bilirubin 0.50 (0.2-1.0) mg/dL AST 17 (13-39) U/L ALT 16 (7-52) U/L Alkaline Phosphatase 66 (34-104) U/L Troponin I 0.00 (<0.04) ng/mL C-Reactive Protein 1.71 (< 5.00) mg/L Total Protein 7.9 (6.4-8.9) g/dL Albumin 4.5 (3.2-5.2) g/dL Globulin 3.4 (2-4) g/dL Albumin/Globulin Ratio 1.3 (1-3) Lipase 18 (11.0-82.0) U/L TSH 3.24 (0.34-5.60) mcIU/mL Beta HCG, Quant < 0.60 mIU/mL 02/14/17 Range/Units 21:55 WBC (3.5-10.8) 10^3/ul RBC (4.0-5.4) 10^6/ul Hgb (12.0-16.0) g/dl Hct (35-47) % MCV (80-97) fL MCH (27-31) pg MCHC (31-36) g/dl RDW (10.5-15) % Plt Count (150-450) 10^3/ul MPV (7.4-10.4) um3 Neut % (Auto) (38-83) % Lymph % (Auto) (25-47) % [place] % (Auto) (1-9) % Eos % (Auto) (0-6) % Baso % (Auto) (0-2) % Absolute Neuts (auto) (1.5-7.7) 10^3/ul Absolute Lymphs (auto) (1.0-4.8) 10^3/ul Absolute Monos (auto) (0-0.8) 10^3/ul Absolute Eos (auto) (0-0.6) 10^3/ul Absolute Basos (auto) (0-0.2) 10^3/ul Absolute Nucleated RBC 10^3/ul Nucleated RBC % INR (Anticoag Therapy) (0.89-1.11) APTT (26.0-36.3) seconds Sodium (133-145) mmol/L Potassium (3.5-5.0) mmol/L Chloride (101-111) mmol/L Carbon Dioxide (22-32) mmol/L Anion Gap (2-11) mmol/L BUN (6-24) mg/dL Creatinine (0.51-0.95) mg/dL Est GFR ( Amer) (>60) Est GFR (Non-Af Amer) (>60) BUN/Creatinine Ratio (8-20) Glucose (70-100) mg/dL Lactic Acid 1.3 (0.5-2.0) mmol/L Calcium (8.6-10.3) mg/dL Total Bilirubin (0.2-1.0) mg/dL AST (13-39) U/L ALT (7-52) U/L Alkaline Phosphatase (34-104) U/L Troponin I (<0.04) ng/mL C-Reactive Protein (< 5.00) mg/L Total Protein (6.4-8.9) g/dL Albumin (3.2-5.2) g/dL Globulin (2-4) g/dL Albumin/Globulin Ratio (1-3) Lipase (11.0-82.0) U/L TSH (0.34-5.60) mcIU/mL Beta HCG, Quant mIU/mL Result Diagrams: 02/14/17 21:55 02/14/17 21:55 Lab Statement: Any lab studies that have been ordered have been reviewed, and results considered in the medical decision making process. - CT HEAD CTA CT Interpretation: No Acute Changes - 1. AGAIN NOTED ARE FINDINGS SUGGESTIVE OF REMOTE DISSECTION OF THE RIGHT VERTEBRAL ARTERY WITHOUT CHANGE FROM THE PREVIOUS EXAMINATION. 2. NO INTERNAL CAROTID ARTERY STENOSIS BY NASCET CRITERIA. 3. NO ANEURYSM, VASCULAR MALFORMATION, OCCLUSION, OR STENOSIS OF THE VISUALIZED INTRACRANIAL CIRCULATION. CT Interpretation Completed By: Radiologist - Ultrasound No standard instances Ultrasound Interpretation: No Acute Changes - TRASNVAGINAL US: NML APPEARANCE OF THE UTERUS. ENDOMETRIUM WITHIN NML LIMITS, CORRELATE WITH PHASE OF MENSES. NML APPEARANCE OF BOTH OVARIES WITH NML ARTERIAL VENOUS FLOW SEEN BILATERALLY. FOLLICLES NOTED BILATERALLY. Ultrasound Interpretation Completed By: Radiologist Re-Evaluation - Re-Evaluation 1 Re-Evaluation Time: 23:31 Change: Improved - After discussing lab results and CTA/US pt is agreeable with the plan to be d/c home. Headache Course/Dx - Course Course Of Treatment: NO CRITICAL CARE TIME Assessment/Plan: DICHARGE HOME STABLE - Diagnoses Provider Diagnoses: Headache, Chest pain, Neck pain, Pelvic pain Discharge - Discharge Plan Condition: Stable Disposition: HOME Patient Education Materials: Chest Pain (ED), Pelvic Pain (ED), General Headache (ED), Neck Pain (ED) Referrals: Luli Macdonald MD [Primary Care Provider] - Additional Instructions: FOLLOW UP WITH YOUR DOCTOR. RETURN TO THE EMERGENCY DEPARTMENT FOR ANY WORSENING OF YOUR CONDITION; PAIN, SHORTNESS OF BREATH, YOU FEEL ILL OR QUESTIONS OR CONCERNS. The documentation as recorded by the Nicolas peres Claudia accurately reflects the service I personally performed and the decisions made by me, Georges Blanco MD.
== END 2017-02-14 23:40 | disposition home or self-care (01) ==
LOC: ED 20:58
DX: R51 Headache (principal); R07.9 Chest pain, unspecified; R10.2 Pelvic and perineal pain; R11.0 Nausea; H53.149 Visual discomfort, unspecified; M54.2 Cervicalgia
CPT/HCPCS: 36415; 70496; 70498; 76830; 80053; 83605; 83690; 84443; 84484; 84702; 85025; 85610; 85730; 86140; 96374; 99283; J2405; Q9967

== ENCOUNTER 2017-12-01 17:10 | Emergency (ER) | payer OTHER ==
[2017-12-01] MEDS ORDERED: NS 0.9% 1000 ML* 1,000 ML IV ONE (17:29)
[2017-12-01 18:08] LABS: ABS Basophils 0.1 10^3/ul (0-0.2); ABS Eosinophils 0.2 10^3/ul (0-0.6); ABS Lymphocytes 2.9 10^3/ul (1.0-4.8); ABS Monocytes 0.5 10^3/ul (0-0.8); ABS Neutrophils 4.9 10^3/ul (1.5-7.7); ABS Nucleated RBC 0 10^3/ul; Hematocrit 39 % (35-47); Hemoglobin 13.5 g/dl (12.0-16.0); Lymphocyte % 34.1 % (25-47); Mean Corpuscular HGB Conc 35 g/dl (31-36); Mean Corpuscular Hemoglobin 31 pg (27-31); Mean Corpuscular Volume 90 fL (80-97); Mean Platelet Volume 9 um3 (7.4-10.4); Nucleated Red Blood Cells % 0; Platelet Count 302 10^3/ul (150-450); Red Blood Count 4.34 10^6/ul (4.0-5.4); Red Cell Distribution Width 14 % (10.5-15); White Blood Count 8.6 10^3/ul (3.5-10.8)
[2017-12-01 18:12] LABS: Urine Appearance Clear; Urine Blood Negative (Negative); Urine Color Colorless; Urine Ketones Negative (Negative); Urine Protein Negative (Negative); Urine Specific Gravity 1.002 (1.010-1.030); Urine Urobilinogen Negative (Negative)
[2017-12-01 18:22] LABS: EGFR Non-African American 75.5 (>60)
[2017-12-01] MEDS ORDERED: Iohexol 350* (CONTRAST) 500 ML MDV IV ONE (18:29)
--- NOTE | 2017-12-01 19:56 | RAD ---
INDICATION: Neck pain. History of vertebral dissection. COMPARISON: CTA head and neck February 14, 2017 TECHNIQUE: Axial source images were acquired with coronal and sagittal reconstructions. CT angiographic technique was utilized with injection of 80 mL Omnipaque 350. FINDINGS: Aortic arch: There are no CT angiogram abnormalities of the arch or the great vessels arising from the arch. Right carotid: The common carotid artery, carotid bifurcation, extracranial portions of the internal carotid artery, carotid artery at the skull base, carotid siphon, and carotid termination appear normal. Left carotid:The common carotid artery, carotid bifurcation, extracranial portions of the internal carotid artery, carotid artery at the skull base, carotid siphon, and carotid termination appear normal. Right middle and anterior cerebral arteries: There are no CT angiographic abnormalities of the middle or anterior cerebral arteries. Left middle and anterior cerebral arteries: There are no CT angiographic abnormalities of the middle or anterior cerebral arteries Right vertebral: The CT angiographic appearance of the vertebral artery is unchanged. There are findings suggestive of a short segment right vertebral dissection as also previously. This is apparent on axial reference images 90 through 98/273. Left vertebral: The CT angiographic appearance of the vertebral artery is normal. Basilar artery: The basilar artery and basilar tip appear normal. Posterior cerebral arteries: The distal distribution of the right and left posterior cerebral arteries is normal. [place]: The CT angiographic appearance of the [place] is normal. Source images show no evidence of mass or adenopathy within the neck. There are no focal brain parenchymal abnormalities or abnormal areas of enhancement. IMPRESSION: CT ANGIOGRAPHIC FINDINGS REMAIN CONSISTENT WITH A CHRONIC, SHORT-SEGMENT, RIGHT VERTEBRAL ARTERY DISSECTION, UNCHANGED. THE REMAINDER OF THE EXAMINATION IS UNREMARKABLE. CPT II Codes: 3100F PQRS
[2017-12-01] MEDS ORDERED: Ketorolac INJ* 30 MG/ML 1 ML VIAL IV PUSH ONE (20:42)
[2017-12-01] MEDS ORDERED: LORazepam INJ* 2 MG/ML 1 ML VIAL IV PUSH ONE (20:43)
[2017-12-01 20:59] VITALS: BP 127/69
--- NOTE | 2017-12-01 22:36 | ED ---
IMichael Stephanie, scribed for Krystle Law MD on 12/01/17 at 2039 . Progress - Results/Orders Results/Orders: CTA Head reveals: CT ANGIOGRAPHIC FINDINGS REMAIN CONSISTENT WITH A CHRONIC, SHORT-SEGMENT, RIGHT VERTEBRAL ARTERY DISSECTION, UNCHANGED. THE REMAINDER OF THE EXAMINATION IS UNREMARKABLE. Course/Dx - Course Course Of Treatment: Case discussed with Dr King Lauren for [place]. Stated that pt is satble to D/C home to Continue Palvix and follow up with Dr Flower tomorrow. Pt felt better after she was treated for for her neck pain. Pt given script for Plavix. - Diagnoses Provider Diagnoses: Neck pain, R vertebral artery dissection The documentation as recorded by the Michael peres Stephanie accurately reflects the service I personally performed and the decisions made by me, Krystle Law MD.
--- NOTE | 2017-12-02 16:58 | ED ---
Dallas Gomez Angela, scribed for Tima Blanco MD on 12/01/17 at 1848 . Neck Pain - HPI Summary HPI Summary: This pt is a 32 y/o female presenting to [facility] c/o left sided neck pain. Pt has history of bilateral vertebral artery dissection. She states she was on Plavix but she has not taken it in 1 week due to running out of her medications. Pt called her neurologist who advised her to come to the ED to rule ou a new vertebral artery dissection. Pt notes this pain does not feel as intense as the pain she had when she had bilateral vertebral artery dissection, but does report the pain is similar in less intensity. - History of Current Complaint Chief Complaint: EDNeckComplaint Stated Complaint: NECK PAIN Time Seen by Provider: 12/01/17 17:29 Hx Obtained From: Patient Hx Last Menstrual Period: Approximately 10 days ago. Onset/Duration Of Injury/Symptoms: Hours Mechanism Of Injury: No Known Trauma Timing: Lasting Hours Onset/Duration: Gradual Onset, Still Present Severity Currently: Severe Pain Intensity: 7 Pain Scale Used: 0-10 Numeric Location: Discrete At: - left sided neck Aggravating Factors: Nothing Alleviating Factors: Nothing Related History: Similar Episode/Dx As: - history of bilateral vertebral artery dissection - Allergies/Home Medications Allergies/Adverse Reactions: Allergies Allergy/AdvReac Type Severity Reaction Status Date / Time MS Amoxicillin [Amoxicillin] Allergy Hives Verified 06/16/17 11:00 MS Erythromycin Allergy Hives Verified 06/16/17 11:00 [Erythromycin] MS Penicillin G Allergy Hives Verified 06/16/17 11:00 [Penicillin G] MS Sulfa Antibiotics Allergy Hives Verified 06/16/17 11:00 [Sulfa Antibiotics] MS Tetracycline Allergy Hives Verified 06/16/17 11:00 [Tetracycline] pediasole Allergy Hives Uncoded 06/16/17 11:00 PMH/Surg Hx/FS Hx/Imm Hx Endocrine/Hematology History: Reports: Hx Anemia - current Denies: Hx Diabetes, Hx Systemic Lupus Erythematosus Cardiovascular History: Reports: Hx Syncope - in the ED this visit Denies: Hx Congestive Heart Failure, Hx Hypertension, Hx Pacemaker/ICD GI History: Reports: Hx Gastroesophageal Reflux Disease, Hx Hiatal Hernia History: Reports: Other Problems/Disorders - frequent blood in urine and frequent urination Denies: Hx Dialysis, Hx Renal Disease Musculoskeletal History: Denies: Hx Rheumatoid Arthritis Sensory History: Denies: Hx Hearing Aid Neurological History: Reports: Hx Headaches, Hx Migraine, Hx Transient Ischemic Attacks (TIA) Psychiatric History: Reports: Hx Anxiety Denies: Hx Panic Disorder - Surgical History Surgery Procedure, Year, and Place: RT KNEE MENISCUS & ACL RECONSTRUCTION 05/2014 ; DOUBLE HERNIA; WISDOM TEETH, Abdominal surgery to drain internal bleeding March 2016 [facility] Hx Anesthesia Reactions: No - Immunization History Date of Tetanus Vaccine: utd Date of Influenza Vaccine: none Infectious Disease History: No Infectious Disease History: Denies: Traveled Outside the [place] in Last 30 Days - Family History Known Family History: Negative: Cardiac Disease, Hypertension, Diabetes - Social History Alcohol Use: Occasionally Substance Use Type: Reports: None Smoking Status (MU): Never Smoked Tobacco Type: Cigarettes Review of Systems Negative: Fever, Chills Eyes: Negative ENT: Negative Cardiovascular: Negative Musculoskeletal: Other - neck pain All Other Systems Reviewed And Are Negative: Yes Physical Exam - Summary Physical Exam Summary: VITAL SIGNS: Reviewed. GENERAL: Patient is a well-developed and nourished female who is lying comfortable in the stretcher. Patient is not in any acute respiratory distress. HEAD AND FACE: No signs of trauma. No ecchymosis, hematomas or skull depressions. No sinus tenderness. EYES: PERRLA, EOMI x 2, No injected conjunctiva, no nystagmus. EARS: Hearing grossly intact. Ear canals and tympanic membranes are within normal limits. MOUTH: Oropharynx within normal limits. NECK: Supple, trachea is midline, no adenopathy, no JVD, no carotid bruit, no c- spine tenderness, neck with full ROM. CHEST: Symmetric, no tenderness at palpation LUNGS: Clear to auscultation bilaterally. No wheezing or crackles. CVS: Regular rate and rhythm, S1 and S2 present, no murmurs or gallops appreciated. ABDOMEN: Soft, non-tender. No signs of distention. No rebound no guarding, and no masses palpated. Bowel sounds are normal. EXTREMITIES: FROM in all major joints, no edema, no cyanosis or clubbing. NEURO: Alert and oriented x 3. No acute neurological deficits. Speech is normal and follows commands. SKIN: Dry and warm Triage Information Reviewed: Yes Vital Signs On Initial Exam: Initial Vitals Temp Pulse Resp BP Pulse Ox 98.5 F 57 17 124/72 100 02/15/18 17:24 18 17:24 12/01/17 17:24 12/01/17 17:24 12/01/17 17:24 Vital Signs Reviewed: Yes Diagnostics - Vital Signs Vital Signs Temp Pulse Resp BP Pulse Ox 12/01/17 17:24 98.5 F 57 17 124/72 100 - Laboratory Lab Results: Lab Results 12/01/17 12/01/17 12/01/17 Range/Units 17:55 17:55 17:55 WBC 8.6 (3.5-10.8) 10^3/ul RBC 4.34 (4.0-5.4) 10^6/ul Hgb 13.5 (12.0-16.0) g/dl Hct 39 (35-47) % MCV 90 (80-97) fL MCH 31 (27-31) pg MCHC 35 (31-36) g/dl RDW 14 (10.5-15) % Plt Count 302 (150-450) 10^3/ul MPV 9 (7.4-10.4) um3 Neut % (Auto) 56.6 (38-83) % Lymph % (Auto) 34.1 (25-47) % [place] % (Auto) 5.9 (1-9) % Eos % (Auto) 2.0 (0-6) % Baso % (Auto) 1.4 (0-2) % Absolute Neuts (auto) 4.9 (1.5-7.7) 10^3/ul Absolute Lymphs (auto) 2.9 (1.0-4.8) 10^3/ul Absolute Monos (auto) 0.5 (0-0.8) 10^3/ul Absolute Eos (auto) 0.2 (0-0.6) 10^3/ul Absolute Basos (auto) 0.1 (0-0.2) 10^3/ul Absolute Nucleated RBC 0 10^3/ul Nucleated RBC % 0 Sodium 139 (133-145) mmol/L Potassium 3.5 (3.5-5.0) mmol/L Chloride 105 (101-111) mmol/L Carbon Dioxide 26 (22-32) mmol/L Anion Gap 8 (2-11) mmol/L BUN 11 (6-24) mg/dL Creatinine 0.87 (0.51-0.95) mg/dL Est GFR ( Amer) 97.0 (>60) Est GFR (Non-Af Amer) 75.5 (>60) BUN/Creatinine Ratio 12.6 (8-20) Glucose 90 (70-100) mg/dL Lactic Acid 1.8 (0.5-2.0) mmol/L Calcium 10.0 (8.6-10.3) mg/dL Total Bilirubin 0.30 (0.2-1.0) mg/dL AST 15 (13-39) U/L ALT 11 (7-52) U/L Alkaline Phosphatase 69 (34-104) U/L C-Reactive Protein 1.55 (< 5.00) mg/L Total Protein 7.8 (6.4-8.9) g/dL Albumin 4.6 (3.2-5.2) g/dL Globulin 3.2 (2-4) g/dL Albumin/Globulin Ratio 1.4 (1-3) Urine Color Urine Appearance Urine pH (5-9) Ur Specific [place] (1.010-1.030) Urine Protein (Negative) Urine Ketones (Negative) Urine Blood (Negative) Urine Nitrate (Negative) Urine Bilirubin (Negative) Urine Urobilinogen (Negative) Ur Leukocyte Esterase (Negative) Urine Glucose (Negative) 12/01/17 Range/Units 17:55 WBC (3.5-10.8) 10^3/ul RBC (4.0-5.4) 10^6/ul Hgb (12.0-16.0) g/dl Hct (35-47) % MCV (80-97) fL MCH (27-31) pg MCHC (31-36) g/dl RDW (10.5-15) % Plt Count (150-450) 10^3/ul MPV (7.4-10.4) um3 Neut % (Auto) (38-83) % Lymph % (Auto) (25-47) % [place] % (Auto) (1-9) % Eos % (Auto) (0-6) % Baso % (Auto) (0-2) % Absolute Neuts (auto) (1.5-7.7) 10^3/ul Absolute Lymphs (auto) (1.0-4.8) 10^3/ul Absolute Monos (auto) (0-0.8) 10^3/ul Absolute Eos (auto) (0-0.6) 10^3/ul Absolute Basos (auto) (0-0.2) 10^3/ul Absolute Nucleated RBC 10^3/ul Nucleated RBC % Sodium (133-145) mmol/L Potassium (3.5-5.0) mmol/L Chloride (101-111) mmol/L Carbon Dioxide (22-32) mmol/L Anion Gap (2-11) mmol/L BUN (6-24) mg/dL Creatinine (0.51-0.95) mg/dL Est GFR ( Amer) (>60) Est GFR (Non-Af Amer) (>60) BUN/Creatinine Ratio (8-20) Glucose (70-100) mg/dL Lactic Acid (0.5-2.0) mmol/L Calcium (8.6-10.3) mg/dL Total Bilirubin (0.2-1.0) mg/dL AST (13-39) U/L ALT (7-52) U/L Alkaline Phosphatase (34-104) U/L C-Reactive Protein (< 5.00) mg/L Total Protein (6.4-8.9) g/dL Albumin (3.2-5.2) g/dL Globulin (2-4) g/dL Albumin/Globulin Ratio (1-3) Urine Color Colorless Urine Appearance Clear Urine pH 7.0 (5-9) Ur Specific [place] 1.002 L (1.010-1.030) Urine Protein Negative (Negative) Urine Ketones Negative (Negative) Urine Blood Negative (Negative) Urine Nitrate Negative (Negative) Urine Bilirubin Negative (Negative) Urine Urobilinogen Negative (Negative) Ur Leukocyte Esterase Negative (Negative) Urine Glucose Negative (Negative) Result Diagrams: 12/01/17 17:55 12/01/17 17:55 Lab Statement: Any lab studies that have been ordered have been reviewed, and results considered in the medical decision making process. Neck Course/Dx - Course Assessment/Plan: This pt is a 32 y/o female presenting to [facility] c/o left sided neck pain. Pt has history of bilateral vertebral artery dissection. She states she was on Plavix but she has not taken it in 1 week due to running out of her medications. Pt called her neurologist who advised her to come to the ED to rule ou a new vertebral artery dissection. Pt notes this pain does not feel as intense as the pain she had when she had bilateral vertebral artery dissection, but does report the pain is similar in less intensity. Test results are still pending. After creatinine and BUN results are normal the pt will get a CTA to rule out vertebral dissection. Pt will be signed out to Dr. Law to follow up on the results of the CTA and discuss the results with Dr. Banegas, neurologist. Pt is hemodynamically stable, alert and oriented x3. - Diagnoses Provider Diagnoses: Neck pain, rule out vertebral artery dissection Discharge - Discharge Plan Condition: Stable Disposition: OTHER Discharge Disposition Comment: signed out to Dr. Law, pending dispo, awaiting CTA results Referrals: Luli Macdonald MD [Primary Care Provider] - The documentation as recorded by the Dallas peres Angela accurately reflects the service I personally performed and the decisions made by , Tima Blanco MD.
== END 2017-12-01 22:21 ==
LOC: ED 17:10
DX: I77.74 Dissection of vertebral artery (principal); M54.2 Cervicalgia
CPT/HCPCS: 36415; 70496; 70498; 80053; 81003; 83605; 85025; 86140; 96374; 96375; 99283; J1885; J2060; Q9967

== ENCOUNTER 2018-05-28 14:12 | Emergency (ER) | payer OTHER ==
[2018-05-28 14:44] VITALS: BP 111/75
[2018-05-28] MEDS ORDERED: Nitrofurantoin Macrocrystals* 50 MG CAP PO ONE (15:21)
--- NOTE | 2018-05-28 17:01 | UC ---
Complaint Female HPI - HPI Summary HPI Summary: States she has been having urinary frequency and burning for the past 3 days, she states she had a miscarriage in March and has had irregular vaginal spotting. Denies flank pain, fever or chills. She states she has PCOS and history of vertebral artery dissection for which she is taking Plavix. - History Of Current Complaint Chief Complaint: UCGU Stated Complaint: PAIN WHEN VOIDING Time Seen by Provider: 05/28/18 14:56 Hx Obtained From: Patient Hx Last Menstrual Period: see traige note ?: No Onset/Duration: Sudden Onset, Lasting Days Timing: Intermittent, Lasting Hours Severity Initially: Moderate Severity Currently: Severe Pain Intensity: 8 Pain Scale Used: 0-10 Numeric Character: Burning Aggravating Factor(s): Urination Alleviating Factor(s): Nothing Associated Signs And Symptoms: Positive: Vaginal Bleeding/Discharge - Risk Factors Ectopic Risk Factor: Maternal Age ^ 30 Ovarian Torsion Risk Factor: Negative - Allergies/Home Medications Allergies/Adverse Reactions: Allergies Allergy/AdvReac Type Severity Reaction Status Date / Time amoxicillin Allergy Unknown Hives Verified 05/28/18 14:44 erythromycin base Allergy Unknown Hives Verified 05/28/18 14:44 Penicillins Allergy Unknown Hives Verified 05/28/18 14:44 Sulfa (Sulfonamide Allergy Unknown Hives Verified 05/28/18 14:44 Antibiotics) tetracycline Allergy Unknown Hives Verified 05/28/18 14:44 pediasole Allergy Unknown Hives Uncoded 05/28/18 14:44 Home Medications: Home Medications Clopidogrel TAB* [Plavix TAB*] 75 mg PO DAILY 05/28/18 [History Confirmed ] Escitalopram (NF) [Lexapro 10 mg (NF)] 10 mg PO DAILY 05/28/18 [History Confirmed 05/28/18] PMH/Surg Hx/FS Hx/Imm Hx Previously Healthy: Yes GI/ History: Other - PCOS Other GI/ History: PCOS Neurological History: TIA Psychological History: Depression - Surgical History Surgical History: Yes Surgery Procedure, Year, and Place: RT KNEE MENISCUS & ACL RECONSTRUCTION 05/2014 ;. DOUBLE HERNIA; WISDOM TEETH,. Abdominal surgery to drain internal bleeding March 2016 [facility] - Family History Known Family History: Positive: None Negative: Cardiac Disease, Hypertension, Diabetes - Social History Alcohol Use: Rare Substance Use Type: None Smoking Status (MU): Never Smoked Tobacco Type: Cigarettes Amount Used/How Often: smoked for 1-2 years didn't smoke every day When Did the Patient Quit Smoking/Using Tobacco: quit in 20's - Immunization History Most Recent Influenza Vaccination: 2014 Most Recent Tetanus Shot: 2014 Most Recent Pneumonia Vaccination: unknown Review of Systems Constitutional: Negative Genitourinary: Dysuria, Frequency, Urgency All Other Systems Reviewed And Are Negative: Yes Physical Exam Triage Information Reviewed: Yes Appearance: Well-Appearing, No Pain Distress, Well-Nourished Vital Signs: Initial Vital Signs Temp 98 F 05/28/18 14:40 Pulse 82 05/28/18 14:40 Resp 18 05/28/18 14:40 BP 111/75 05/28/18 14:40 Pulse Ox 100 05/28/18 14:40 Vital Signs Reviewed: Yes Eyes: Positive: Conjunctiva Clear ENT: Positive: Hearing grossly normal, Pharynx normal Neck: Positive: Supple, Nontender, No Lymphadenopathy Respiratory: Positive: Chest non-tender, Lungs clear, Normal breath sounds, No respiratory distress Cardiovascular: Positive: RRR, No Murmur, Pulses Normal, Brisk Capillary Refill Abdomen Description: Positive: No Organomegaly, Soft, Other: - tenderness suprapubic area Complaint Female Dx - Course Course Of Treatment: Symptoms compatible with UTI, start macrobid as prescribed , f/u with PCP. Aggressive oral hydration - Differential Dx/Diagnosis Provider Diagnoses: UTI Discharge - Sign-Out/Discharge Documenting (check all that apply): Patient Departure - Discharge Plan Condition: Good Disposition: HOME Prescriptions: Nitrofurantoin Monohyd/M-Cryst [Macrobid 100 mg Capsule] 100 mg PO BID 7 Days # 14 cap Patient Education Materials: Nitrofurantoin Combination (By mouth), Urinary Tract Infection in Women (DC) Referrals: Luli Macdonald MD [Primary Care Provider] - - Billing Disposition and Condition Condition: GOOD Disposition: Home
== END 2018-05-28 15:30 | disposition home or self-care (01) ==
LOC: UCEAST 14:12
DX: N39.0 Urinary tract infection, site not specified (principal); F32.9 Major depressive disorder, single episode, unspecified; Z79.01 Long term (current) use of anticoagulants; Z88.1 Allergy status to other antibiotic agents; Z88.0 Allergy status to penicillin; Z88.2 Allergy status to sulfonamides; Z87.891 Personal history of nicotine dependence
CPT/HCPCS: 84702; 87086; 99212; A9270-GY; G0463

== ENCOUNTER 2018-09-28 15:51 | Emergency (ER) | payer OTHER ==
[2018-09-28 16:14] VITALS: BP 124/75
--- NOTE | 2018-09-28 16:21 | UC ---
Complaint Female HPI - HPI Summary HPI Summary: Pt reports inner vaginal discomfort and lower back pain after being dx'd w/ chlamydia by outside provider. She took the antibx today. she is here today wondering if she has PID . not using control. - History Of Current Complaint Chief Complaint: UCGU Stated Complaint: PERSONAL Time Seen by Provider: 09/28/18 16:03 Hx Obtained From: Patient Hx Last Menstrual Period: 2 weeks ago ?: No Onset/Duration: Sudden Onset Timing: Constant Pain Intensity: 6 Character: Burning Aggravating Factor(s): Nothing Alleviating Factor(s): Nothing Associated Signs And Symptoms: Positive: Back Pain - Allergies/Home Medications Allergies/Adverse Reactions: Allergies Allergy/AdvReac Type Severity Reaction Status Date / Time amoxicillin Allergy Unknown Hives Verified 09/28/18 16:09 erythromycin base Allergy Unknown Hives Verified 09/28/18 16:09 Penicillins Allergy Unknown Hives Verified 09/28/18 16:09 Sulfa (Sulfonamide Allergy Unknown Hives Verified 09/28/18 16:09 Antibiotics) tetracycline Allergy Unknown Hives Verified 09/28/18 16:09 pediasole Allergy Unknown Hives Uncoded 09/28/18 16:09 PMH/Surg Hx/FS Hx/Imm Hx Previously Healthy: Yes Cardiovascular History: Other - arterial issue in neck - Surgical History Surgical History: Yes Surgery Procedure, Year, and Place: RT KNEE MENISCUS & ACL RECONSTRUCTION 05/2014 ;. DOUBLE HERNIA; WISDOM TEETH,. Abdominal surgery to drain internal bleeding March 2016 [facility] - Family History Known Family History: Positive: None Negative: Cardiac Disease, Hypertension, Diabetes - Social History Alcohol Use: None Substance Use Type: None Smoking Status (MU): Never Smoked Tobacco Type: Cigarettes Amount Used/How Often: smoked for 1-2 years didn't smoke every day When Did the Patient Quit Smoking/Using Tobacco: quit in 's - Immunization History Most Recent Influenza Vaccination: 2015 Most Recent Tetanus Shot: 2015 Most Recent Pneumonia Vaccination: unknown Review of Systems All Other Systems Reviewed And Are Negative: Yes Constitutional: Positive: Fever, Chills Skin: Positive: Negative Genitourinary: Positive: Dysuria, Vaginal/Penile Burning, Vaginal/Penile Pain. Negative: Hematuria, Frequency, Urgency Psychological: Positive: Negative Physical Exam Triage Information Reviewed: Yes Appearance: Well-Appearing Vital Signs: Initial Vital Signs Temp 98.4 F 09/28/18 16:04 Pulse 75 09/28/18 16:04 Resp 18 09/28/18 16:04 BP 124/75 09/28/18 16:04 Pulse Ox 100 09/28/18 16:04 Vital Signs Reviewed: Yes Respiratory: Positive: No respiratory distress Pelvic Exam: Positive: Other - declined Complaint Female Dx - Course Course Of Treatment: Pt came in today to check if she had PID due to her symptoms. I explained she likely does have this but She took 1g of Azithromycin today and would need meds to take effect. Explained we do not do test of cures on non patients. Urine hcg neg. today. Encouraged condom use. - Differential Dx/Diagnosis Differential Diagnosis/HQI/PQRI: Pelvic Inflammatory Disease, , Urinary Tract Infection Provider Diagnosis: PID (pelvic inflammatory disease) contact, treated Discharge - Sign-Out/Discharge Documenting (check all that apply): Patient Departure All imaging exams completed and their final reports reviewed: No Studies - Discharge Plan Condition: Good Disposition: HOME Patient Education Materials: Pelvic Inflammatory Disease (ED) Referrals: Luli Macdonald MD [Primary Care Provider] - Additional Instructions: if needed please follow up with pcp/. - Billing Disposition and Condition Condition: GOOD Disposition: Home
== END 2018-09-28 16:51 | disposition home or self-care (01) ==
LOC: UCEAST 15:51
DX: N73.9 Female pelvic inflammatory disease, unspecified (principal); Z88.0 Allergy status to penicillin; Z88.1 Allergy status to other antibiotic agents; Z88.2 Allergy status to sulfonamides; Z87.891 Personal history of nicotine dependence
CPT/HCPCS: 84702; 99211; G0463

== ENCOUNTER 2018-12-01 02:57 | Emergency (ER) | payer OTHER ==
[2018-12-01] MEDS ORDERED: oxyCODONE/Acetamin 5/325 MG* TAB PO ONE (03:29)
--- NOTE | 2018-12-01 03:36 | ED ---
HPI Chest Pain - HPI Summary HPI Summary: This patient is a 33 year old female [facility] by significant other with a chief complaint of chest pain since yesterday. Patient states that she has had a chest pain on her mid-left sternum, which goes through her body and radiates to her back as well. Patient also notes that last night, her left foot went numb and she was unable to move some of her toes. The pain is described as heaviness. The pain is rated 6/10 in severity. Symptoms aggravated by nothing. Symptoms alleviated by nothing. Patient denies fever. - History of Current Complaint Chief Complaint: EDChestPainROMI Time Seen by Provider: 12/01/18 03:09 Hx Obtained From: Patient Hx Last Menstrual Period: 2 weeks ago Onset/Duration: Started Days Ago, Still Present Timing: Constant Initial Severity: Moderate Pain Intensity: 6 Pain Scale Used: 0-10 Numeric Chest Pain Location: Mid Sternal, Left Anterior Chest Pain Radiates: Yes Chest Pain Radiates To:: Back Character: Heaviness Aggravating Factor(s): Nothing Alleviating Factor(s): Nothing Associated Signs and Symptoms: Negative: Fever - Additional Pertinent History Primary Care Physician: [id number] - Allergy/Home Medications Allergies/Adverse Reactions: Allergies Allergy/AdvReac Type Severity Reaction Status Date / Time amoxicillin Allergy Unknown Hives Verified 12/01/18 03:12 erythromycin base Allergy Unknown Hives Verified 12/01/18 03:12 Penicillins Allergy Unknown Hives Verified 12/01/18 03:12 Sulfa (Sulfonamide Allergy Unknown Hives Verified 12/01/18 03:12 Antibiotics) tetracycline Allergy Unknown Hives Verified 12/01/18 03:12 pediasole Allergy Unknown Hives Uncoded 12/01/18 03:12 Home Medications: Home Medications ALPRAZolam [Alprazolam] 0.5 mg PO SEE INSTRUCTIONS PRN 12/01/18 [History Confirmed 12/01/18] Cyclobenzaprine HCl 10 mg PO SEE INSTRUCTIONS PRN 12/01/18 [History Confirmed ] PMH/Surg Hx/FS Hx/Imm Hx Previously Healthy: No Endocrine/Hematology History: Denies: Hx Diabetes, Hx Systemic Lupus Erythematosus, Hx Thyroid Disease, Hx Anemia Cardiovascular History: Reports: Hx Syncope - in the ED this visit Denies: Hx Congestive Heart Failure, Hx Hypertension, Hx Pacemaker/ICD Respiratory History: Denies: Hx Asthma, Hx Chronic Obstructive Pulmonary Disease (COPD) GI History: Reports: Hx Gastroesophageal Reflux Disease, Hx Hiatal Hernia Denies: Hx Ulcer History: Reports: Other Problems/Disorders - frequent blood in urine and frequent urination Denies: Hx Dialysis, Hx Renal Disease Musculoskeletal History: Denies: Hx Rheumatoid Arthritis Sensory History: Denies: Hx Contacts or Glasses, Hx Hearing Aid Opthamlomology History: Denies: Hx Contacts or Glasses Neurological History: Reports: Hx Headaches, Hx Migraine, Hx Transient Ischemic Attacks (TIA) Psychiatric History: Reports: Hx Anxiety, Hx Depression Denies: Hx Panic Disorder - Cancer History Hx Chemotherapy: No - Surgical History Surgery Procedure, Year, and Place: RT KNEE MENISCUS & ACL RECONSTRUCTION 05/2014 ;. DOUBLE HERNIA; WISDOM TEETH,. Abdominal surgery to drain internal bleeding March 2016 [facility] Hx Anesthesia Reactions: No - Immunization History Date of Tetanus Vaccine: utd Date of Influenza Vaccine: none Infectious Disease History: No Infectious Disease History: Denies: Hx Hepatitis, Hx Human Immunodeficiency Virus (HIV), Traveled Outside the [place] in Last 30 Days - Family History Known Family History: Negative: Cardiac Disease, Hypertension, Diabetes - Social History Occupation: Employed Full-time Lives: With Family Alcohol Use: None Hx Substance Use: No Substance Use Type: Reports: None Hx Tobacco Use: Yes Smoking Status (MU): Never Smoked Tobacco Type: Cigarettes Amount Used/How Often: smoked for 1-2 years didn't smoke every day Review of Systems Negative: Fever Positive: Chest Pain Musculoskeletal: Other - back pain Positive: Numbness All Other Systems Reviewed And Are Negative: Yes Physical Exam - Summary Physical Exam Summary: VITAL SIGNS: Reviewed. GENERAL: Patient is a well-developed and nourished female who is lying comfortable in the stretcher. Patient is not in any acute respiratory distress. HEAD AND FACE: No signs of trauma. No ecchymosis, hematomas or skull depressions. No sinus tenderness. EYES: PERRLA, EOMI x 2, No injected conjunctiva, no nystagmus. EARS: Hearing grossly intact. Ear canals and tympanic membranes are within normal limits. MOUTH: Oropharynx within normal limits. NECK: Supple, trachea is midline, no adenopathy, no JVD, no carotid bruit, no c- spine tenderness, neck with full ROM. CHEST: Symmetric, no tenderness at palpation LUNGS: Clear to auscultation bilaterally. No wheezing or crackles. CVS: Regular rate and rhythm, S1 and S2 present, no murmurs or gallops appreciated. ABDOMEN: Soft, non-tender. No signs of distention. No rebound no guarding, and no masses palpated. Bowel sounds are normal. EXTREMITIES: FROM in all major joints, no edema, no cyanosis or clubbing. NEURO: Alert and oriented x 3. No acute neurological deficits. Speech is normal and follows commands. SKIN: Dry and warm Triage Information Reviewed: Yes Vital Signs On Initial Exam: Initial Vitals Temp Pulse Resp BP Pulse Ox 98.5 F 71 16 128/77 97 12/01/18 03:07 12/01/18 03:07 12/01/18 03:07 12/01/18 03:07 12/01/18 03:07 Vital Signs Reviewed: Yes Diagnostics - Vital Signs Vital Signs Temp Pulse Resp BP Pulse Ox 12/01/18 03:11 81 97 12/01/18 03:07 98.5 F 71 16 128/77 97 - Laboratory Result Diagrams: 12/01/18 03:52 12/01/18 03:52 Lab Statement: Any lab studies that have been ordered have been reviewed, and results considered in the medical decision making process. - Radiology CXR Radiology Interpretation Completed By: ED Physician Summary of Radiographic Findings: CXR reveals, per ED physician, no acute process. Pending official report. - EKG 032 Cardiac Rate: NL EKG Rhythm: Sinus Rhythm - 68 BPM Summary of EKG Findings: An EKG, taken 322, reveals NSR (68 BPM) normal axis, normal interval, no ischemic changes Chest Pain Course/Dx - Course Course Of Treatment: This patient is a 33 year old female presenting to [facility] accompanied by significant other with a chief complaint of chest pain since yesterday. Patient states that she has had a chest pain on her mid-left sternum , which goes through her body and radiates to her back as well. An EKG, taken 322, reveals NSR (68 BPM) normal axis, normal interval, no ischemic changes. CXR reveals, per ED physician, no acute process. Pending official report. Bloodwork Obtained. Test results with no significant abnormalities except for a Troponin level of 0.46. In the ED course the patient was given Zofran, Morphine , Aspirin, Oxycodone, Lovenox, Xanax. We discussed patient care with Dr. Jo ( Hospitalist) at 0445, who recommends obtaining a repeat troponin. Repeat troponin reveals 0.00H. Patient will be signed out to Dr. Wright at end of shift , pending CTA Chest/Abd/Pel. The patient is agreeable with this plan. - Diagnoses Provider Diagnoses: Chest pain Discharge - Sign-Out/Discharge Documenting (check all that apply): Sign-Out Patient Signing out patient TO: Marlon Wright Patient Received Moderate/Deep Sedation with Procedure: No - Discharge Plan Referrals: Luli Macdonald MD [Primary Care Provider] - - Attestation Statements Document Initiated by Scribe: Yes Documenting Scribe: Ricki Martínez Provider For Whom Candeibe is Documenting (Include Credential): Krystle Law MD Scribe Attestation: Ricki Gomez, scribed for Krystle Law MD on 12/01/18 at 0730. Status of Scribe Document: Ready
[2018-12-01] MEDS ORDERED: ALPRAZolam TAB* 0.5 MG PO ONE (03:45)
[2018-12-01 03:58] LABS: ABS Basophils 0.1 10^3/ul (0-0.2); ABS Eosinophils 0.2 10^3/ul (0-0.6); ABS Lymphocytes 3.4 10^3/ul (1.0-4.8); ABS Monocytes 0.8 10^3/ul (0-0.8); ABS Neutrophils 5.4 10^3/ul (1.5-7.7); ABS Nucleated RBC 0 10^3/ul; Eosinophil % 2.3 %; Hematocrit 36 % (35-47); Hemoglobin 12.1 g/dl (12.0-16.0); Lymphocyte % 34.6 %; Mean Corpuscular HGB Conc 34 g/dl (31-36); Mean Corpuscular Hemoglobin 30 pg (27-31); Mean Corpuscular Volume 90 fL (80-97); Mean Platelet Volume 8.6 fL (7.4-10.4); Nucleated Red Blood Cells % 0; Platelet Count 275 10^3/ul (150-450); Red Blood Count 3.96 10^6/ul (4.00-5.40); Red Cell Distribution Width 14 % (10.5-15)
[2018-12-01 04:06] LABS: Activated Partial Thrombo Time 33.9 seconds (26.0-36.3); INR 0.93 (0.77-1.02)
[2018-12-01 04:16] LABS: Albumin 4.1 g/dL (3.2-5.2); Albumin/Globulin Ratio 1.4 (1-3); BUN/Creatinine Ratio 14.6 (8-20); EGFR African American 97.1 (>60); EGFR Non-African American 80.3 (>60); Globulin 2.9 g/dL (2-4); Magnesium 2.1 mg/dL (1.9-2.7); Potassium 3.6 mmol/L (3.5-5.0); Total Bilirubin 0.3 mg/dL (0.2-1.0)
[2018-12-01 04:19] LABS: Troponin I 0.46 ng/mL (<0.04)
[2018-12-01] MEDS ORDERED: Aspirin 81 mg CHEW TAB* 81 MG TAB.CHEW PO ONE (04:21)
[2018-12-01] MEDS ORDERED: Enoxaparin(*) 100 MG/ML SYR SUBCUT ONE (04:22)
[2018-12-01] MEDS ORDERED: Ondansetron INJ* 2 MG/ML VIAL IV ONE (04:24)
[2018-12-01] MEDS ORDERED: Morphine VIAL* 10 MG/ML 1 ML VIAL IV ONE (04:24)
[2018-12-01] MEDS ORDERED: Iohexol 350* (CONTRAST) 500 ML MDV IV ONE (06:02)
[2018-12-01] MEDS ORDERED: Morphine VIAL* 4 MG/ML VIAL (1 ml vial) IV ONE (08:41)
--- NOTE | 2018-12-01 08:49 | ED ---
Progress - Progress Note Progress Note: The pt is a signout from Dr. Law. I re-examined her at 0840 because she was complaining of arm pain. On examination, the L forearm is very swollen on the volar aspect, secondary to IV contrast infiltrate. The arm is not warm and is still soft. The pt is neurovascularly intact. The patient was also concerned about the level of her first troponin, so a third troponin will be taken. If it remains flat, the pt will be discharged. - EKG/XRAY/CT CT: CTA abd/pelv/chest - No acute findings. Course/Dx - Course Course Of Treatment: The patient is a signout from Dr. Law. CTA Abd/pelv/ chest is negative. She complained about L arm pain, and on examination, the pt' s L forearm is swollen in the volar aspect secondary to the IV contrast infiltrate. She was also worried about her first troponin levels, so a troponin will be repeated. If it remains flat she will be discharged home. The pt's third troponin remained flat at 0.00. She will be sent home with a dx of chest pain. I discussed results with patient and she reports feeling better. She is hemodynamically stable and safe for discharge. Strict return precautions given and she will otherwise follow up with cardiology. - Diagnoses Provider Diagnoses: Chest pain Discharge - Sign-Out/Discharge Documenting (check all that apply): Patient Departure, Receiving Sign-Out Receiving patient FROM: Krystle Law Patient Received Moderate/Deep Sedation with Procedure: No - Discharge Plan Condition: Stable Disposition: HOME Referrals: Luli Macdonald MD [Primary Care Provider] - Nils Pagan DO [Medical Doctor] - Additional Instructions: Please follow up with cardiology in 1-3 days. RETURN TO THE EMERGENCY DEPARTMENT FOR CHANGING OR WORSENING SYMPTOMS. - Billing Disposition and Condition Condition: STABLE Disposition: Home - Attestation Statements Document Initiated by Scribe: Yes Documenting Scribe: Daisy March Provider For Whom Angelina is Documenting (Include Credential): Marlon Wright Scribe Attestation: Daisy Gomez, scribed for Marlon Wright on 12/02/18 at 0847. Scribe Documentation Reviewed: Yes Provider Attestation: The documentation as recorded by the Daisy peres accurately reflects the service I personally performed and the decisions made by me, Shola Wright Status of Scribe Document: Viewed
[2018-12-01 10:08] VITALS: BP 131/67
== END 2018-12-01 10:08 | disposition home or self-care (01) ==
LOC: ED 02:57
DX: R07.9 Chest pain, unspecified (principal); M79.602 Pain in left arm
CPT/HCPCS: 36415; 71045; 71275; 74174; 80053; 83735; 84484; 85025; 85610; 85730; 93005; 96372; 96374; 96375; 99283; A9270-GY; J1650; J2270; J2405; Q9967

== ENCOUNTER 2018-12-04 00:06 | Emergency (ER) | payer OTHER ==
[2018-12-04] MEDS ORDERED: ALPRAZolam TAB* 0.5 MG PO ONE (00:48)
--- NOTE | 2018-12-04 00:52 | ED ---
Complex/Multi-Sys Presentation - HPI Summary HPI Summary: This patient is a 33 year old F presenting to ED with a chief complaint of substernal CP and anxiety since 4 days ago. The patient rates the pain 7/10 in severity. Symptoms aggravated by nothing. Symptoms alleviated by nothing. Patient reports she had sensation through her L arm, light-headedness, dizziness , HTN, and shaky vision. She took Plavix today. She has klonopin and Xanax at home but she didnt take it. - History Of Current Complaint Chief Complaint: EDChestPainROMI Time Seen by Provider: 12/04/18 00:42 Hx Obtained From: Patient Onset/Duration: Sudden Onset, Lasting Days, Still Present Timing: Constant, Days Severity Currently: Moderate Severity Initially: Moderate - 7/10 Aggravating Factor(s): nothing Alleviating Factor(s): nothing Associated Signs And Symptoms: Positive: Other - sensation through her L arm, light-headedness, dizziness, HTN, and shaky vision - Allergies/Home Medications Allergies/Adverse Reactions: Allergies Allergy/AdvReac Type Severity Reaction Status Date / Time amoxicillin Allergy Unknown Hives Verified 12/04/18 00:10 erythromycin base Allergy Unknown Hives Verified 12/04/18 00:10 Penicillins Allergy Unknown Hives Verified 12/04/18 00:10 Sulfa (Sulfonamide Allergy Unknown Hives Verified 12/04/18 00:10 Antibiotics) tetracycline Allergy Unknown Hives Verified 12/04/18 00:10 pediasole Allergy Unknown Hives Uncoded 12/04/18 00:10 PMH/Surg Hx/FS Hx/Imm Hx Endocrine/Hematology History: Denies: Hx Diabetes, Hx Systemic Lupus Erythematosus, Hx Thyroid Disease, Hx Anemia Cardiovascular History: Reports: Hx Syncope - in the ED this visit Denies: Hx Congestive Heart Failure, Hx Hypertension, Hx Pacemaker/ICD Respiratory History: Denies: Hx Asthma, Hx Chronic Obstructive Pulmonary Disease (COPD) GI History: Reports: Hx Gastroesophageal Reflux Disease, Hx Hiatal Hernia Denies: Hx Ulcer History: Reports: Other Problems/Disorders - frequent blood in urine and frequent urination Denies: Hx Dialysis, Hx Renal Disease Musculoskeletal History: Denies: Hx Rheumatoid Arthritis Sensory History: Denies: Hx Contacts or Glasses, Hx Hearing Aid Opthamlomology History: Denies: Hx Contacts or Glasses Neurological History: Reports: Hx Headaches, Hx Migraine, Hx Transient Ischemic Attacks (TIA) Psychiatric History: Reports: Hx Anxiety, Hx Depression Denies: Hx Panic Disorder - Cancer History Hx Chemotherapy: No - Surgical History Surgery Procedure, Year, and Place: RT KNEE MENISCUS & ACL RECONSTRUCTION 05/2014 ;. DOUBLE HERNIA; WISDOM TEETH,. Abdominal surgery to drain internal bleeding March 2016 [facility] Hx Anesthesia Reactions: No - Immunization History Date of Tetanus Vaccine: utd Date of Influenza Vaccine: none Infectious Disease History: No Infectious Disease History: Denies: Hx Hepatitis, Hx Human Immunodeficiency Virus (HIV), Traveled Outside the [place] in Last 30 Days - Family History Known Family History: Negative: Cardiac Disease, Hypertension, Diabetes - Social History Alcohol Use: None Hx Substance Use: No Substance Use Type: Reports: None Hx Tobacco Use: Yes Smoking Status (MU): Never Smoked Tobacco Type: Cigarettes Amount Used/How Often: smoked for 1-2 years didn't smoke every day Review of Systems Positive: Other - shaky vision Positive: Chest Pain - substernal, Other - HTN Positive: Other - sensation through her L arm Neurological: Other - light-headedness, dizziness Positive: Anxious All Other Systems Reviewed And Are Negative: Yes Physical Exam - Summary Physical Exam Summary: VITAL SIGNS: Reviewed. GENERAL: Patient is a well-developed and nourished FEMALE who is lying comfortable in the stretcher. Patient is not in any acute respiratory distress. HEAD AND FACE: No signs of trauma. No ecchymosis, hematomas or skull depressions. No sinus tenderness. EYES: PERRLA, EOMI x 2, No injected conjunctiva, no nystagmus. EARS: Hearing grossly intact. Ear canals and tympanic membranes are within normal limits. MOUTH: Oropharynx within normal limits. NECK: Supple, trachea is midline, no adenopathy, no JVD, no carotid bruit, no c- spine tenderness, neck with full ROM. CHEST: Symmetric, no tenderness at palpation LUNGS: Clear to auscultation bilaterally. No wheezing or crackles. CVS: Regular rate and rhythm, S1 and S2 present, no murmurs or gallops appreciated. ABDOMEN: Soft, non-tender. No signs of distention. No rebound no guarding, and no masses palpated. Bowel sounds are normal. EXTREMITIES: FROM in all major joints, no edema, no cyanosis or clubbing. NEURO: Alert and oriented x 3. No acute neurological deficits. Speech is normal and follows commands. SKIN: Dry and warm Triage Information Reviewed: Yes Vital Signs On Initial Exam: Initial Vitals Temp Pulse Resp BP Pulse Ox 99.0 F 102 16 125/100 95 12/04/18 00:08 12/04/18 00:08 12/04/18 00:08 12/04/18 00:08 12/04/18 00:08 Vital Signs Reviewed: Yes Diagnostics - Vital Signs Vital Signs Temp Pulse Resp BP Pulse Ox 12/04/18 00:08 99.0 F 102 16 125/100 95 - Laboratory Lab Statement: Any lab studies that have been ordered have been reviewed, and results considered in the medical decision making process. - EKG 0011 Cardiac Rate: NL - 82 BPM Summary of EKG Findings: Normal axis. Normal interval. No ischemic changes. Complex Multi-Symp Course/Dx Assessment/Plan: EKG done at 0011 was a normal EKG with NSR at 82 BPM. Patient is a 33 year old with PMHx of anxiety. She is supposed to be on Lexapro and Xanax for anxiety. She states that she is not taking them. Patient has hx of vertebral artery dissection and is on Plavix. She is currently complaining of substernal CP. She was in the ED two days ago with the same complaint. She did have bloodwork done at that time and she had CTA of chest/abd/pel which was negative for PE and dissection. She does not have any risk factors for CAD. Her symptoms are most likely secondary to anxiety. She had a repeat EKG done in this visit and it was normal. She does not need any repeat of her workup. She can follow up with PCP as an outpatient and cardiology as needed. Patient will be discharged with dx of anxiety. - Diagnoses Differential Diagnoses/HQI/PQRI: Other - anxiety Provider Diagnoses: Anxiety Discharge - Sign-Out/Discharge Documenting (check all that apply): Patient Departure - discharge Patient Received Moderate/Deep Sedation with Procedure: No - Discharge Plan Condition: Stable Disposition: HOME Patient Education Materials: Anxiety (ED) Referrals: Luli Macdonald MD [Primary Care Provider] - (Follow up in 1-2 days and with cardiology as needed.) Additional Instructions: RETURN TO THE EMERGENCY DEPARTMENT FOR CHANGING OR WORSENING SYMPTOMS. FOLLOW UP WITH PCP IN 1-2 DAYS AND WITH CARDIOLOGY NEEDED. - Attestation Statements Document Initiated by Scribe: Yes Documenting Scribe: Gary Martínez Provider For Whom Scribe is Documenting (Include Credential): Krystle Law MD Scribe Attestation: IGary, scribed for Krystle Law MD on 12/04/18 at 0149. Status of Scribe Document: Ready
[2018-12-04 01:56] VITALS: BP 118/83
== END 2018-12-04 02:35 | disposition home or self-care (01) ==
LOC: ED 00:06
DX: F41.9 Anxiety disorder, unspecified (principal); Z79.02 Long term (current) use of antithrombotics/antiplatelets; I77.74 Dissection of vertebral artery; I10 Essential (primary) hypertension; K21.9 Gastro-esophageal reflux disease without esophagitis; Z88.0 Allergy status to penicillin; Z88.2 Allergy status to sulfonamides
CPT/HCPCS: 93005; 99282; A9270-GY

== ENCOUNTER 2019-06-21 16:44 | Emergency (ER) | payer OTHER ==
[2019-06-21 17:25] LABS: ABS Basophils 0.1 10^3/ul (0-0.2); ABS Eosinophils 0.2 10^3/ul (0-0.6); ABS Lymphocytes 2.6 10^3/ul (1.0-4.8); ABS Monocytes 0.6 10^3/ul (0-0.8); ABS Neutrophils 6.8 10^3/ul (1.5-7.7); Eosinophil % 2.3 %; Hematocrit 37 % (35-47); Hemoglobin 12.8 g/dL (12.0-16.0); Lymphocyte % 25.4 %; Mean Corpuscular HGB Conc 35 g/dL (31-36); Mean Corpuscular Hemoglobin 31 pg (27-31); Mean Corpuscular Volume 89 fL (80-97); Mean Platelet Volume 8.4 fL (7.4-10.4); Platelet Count 302 10^3/uL (150-450); Red Blood Count 4.13 10^6 /uL (3.70-4.87); Red Cell Distribution Width 14 % (10-15); White Blood Count 10.4 10^3/uL (3.5-10.8)
[2019-06-21 17:33] LABS: INR 0.95 (0.82-1.09)
[2019-06-21 17:47] LABS: Albumin 4.2 g/dL (3.2-5.2); Albumin/Globulin Ratio 1.4 (1-3); BUN/Creatinine Ratio 15.1 (8-20); Calcium 9.4 mg/dL (8.6-10.3); Globulin 2.9 g/dL (2-4); Potassium 3.5 mmol/L (3.5-5.0); Total Bilirubin 0.3 mg/dL (0.2-1.0); Total Protein 7.1 g/dL (6.4-8.9)
[2019-06-22] MEDS ORDERED: LORazepam TAB(*) 1 MG PO ONE (00:56)
--- NOTE | 2019-06-22 02:29 | ED ---
HPI Chest Pain - HPI Summary HPI Summary: Patient complains of left-sided chest pain, left calf pain starting at noon today. Patient states chest pain is constant, no radiation, worse with deep inhalation. States history of same with anxiety. Patient also states she has a history of bilateral vertebral artery dissection, and is concerned that episodes of chest pain may be related to aortic dissection. Denies recent history of decreasing endurance, or CP and SOB with exertion. Patient normally on Plavix, states she has not taken it for the past week. Denies fever, cough, sore throat, SOB, N/V/D, abdominal pain, change in urine, change in BM. - History of Current Complaint Chief Complaint: EDChestPainROMI Time Seen by Provider: 06/22/19 00:34 Hx Obtained From: Patient Hx Last Menstrual Period: 2 weeks ago Onset/Duration: Started Hours Ago Timing: Constant Initial Severity: Moderate Current Severity: Moderate Pain Intensity: 7 Pain Scale Used: 0-10 Numeric Chest Pain Location: Mid Sternal Chest Pain Radiates: No Character: Pressure/Squeezing Aggravating Factor(s): Nothing Alleviating Factor(s): Nothing Associated Signs and Symptoms: Positive: Chest Pain, Calf Pain/Swelling - Additional Pertinent History Primary Care Physician: [id number] - Allergy/Home Medications Allergies/Adverse Reactions: Allergies Allergy/AdvReac Type Severity Reaction Status Date / Time amoxicillin Allergy Unknown Hives Verified 12/18/18 14:54 erythromycin base Allergy Unknown Hives Verified 12/18/18 14:54 Penicillins Allergy Unknown Hives Verified 12/18/18 14:54 Sulfa (Sulfonamide Allergy Unknown Hives Verified 12/18/18 14:54 Antibiotics) tetracycline Allergy Unknown Hives Verified 12/18/18 14:54 pediasole Allergy Unknown Hives Uncoded 12/04/18 00:10 PMH/Surg Hx/FS Hx/Imm Hx Endocrine/Hematology History: Denies: Hx Diabetes, Hx Systemic Lupus Erythematosus, Hx Thyroid Disease, Hx Anemia Cardiovascular History: Reports: Hx Syncope - in the ED this visit, Other Cardiovascular Problems/Disorders - neck artery dissections x2 Denies: Hx Congestive Heart Failure, Hx Hypertension, Hx Pacemaker/ICD Respiratory History: Denies: Hx Asthma, Hx Chronic Obstructive Pulmonary Disease (COPD) GI History: Reports: Hx Gastroesophageal Reflux Disease, Hx Hiatal Hernia Denies: Hx Ulcer History: Reports: Other Problems/Disorders - frequent blood in urine and frequent urination Denies: Hx Dialysis, Hx Renal Disease Musculoskeletal History: Denies: Hx Rheumatoid Arthritis Sensory History: Denies: Hx Contacts or Glasses, Hx Hearing Aid Opthamlomology History: Denies: Hx Contacts or Glasses EENT History: Denies: Hx Deafness Neurological History: Reports: Hx Headaches, Hx Migraine, Hx Transient Ischemic Attacks (TIA) Psychiatric History: Reports: Hx Anxiety, Hx Depression Denies: Hx Panic Disorder - Cancer History Hx Chemotherapy: No - Surgical History Surgery Procedure, Year, and Place: RT KNEE MENISCUS & ACL RECONSTRUCTION 05/2014 ;. DOUBLE HERNIA; WISDOM TEETH,. Abdominal surgery to drain internal bleeding March 2016 [facility] Hx Anesthesia Reactions: No - Immunization History Date of Tetanus Vaccine: utd Date of Influenza Vaccine: none Infectious Disease History: No Infectious Disease History: Denies: Hx Hepatitis, Hx Human Immunodeficiency Virus (HIV), Traveled Outside the [place] in Last 30 Days - Family History Known Family History: Negative: Cardiac Disease, Hypertension, Diabetes - Social History Alcohol Use: Rare Hx Substance Use: No Substance Use Type: Reports: None Hx Tobacco Use: Yes Smoking Status (MU): Former Smoker Type: Cigarettes Amount Used/How Often: smoked for 1-2 years didn't smoke every day Review of Systems Constitutional: Negative Eyes: Negative ENT: Negative Positive: Chest Pain - once again with water and painful Respiratory: Negative Gastrointestinal: Negative Genitourinary: Negative - 1 started Musculoskeletal: Negative Skin: Negative Neurological: Negative Psychological: Normal All Other Systems Reviewed And Are Negative: Yes Physical Exam - Summary Physical Exam Summary: No ecchymosis, erythema, deformity, swelling noted to left calf. Mild tenderness to palpation of medial left calf. Chest pain not reproducible. Triage Information Reviewed: Yes Vital Signs On Initial Exam: Initial Vitals Temp Pulse Resp BP Pulse Ox 98.0 F 60 20 136/74 99 06/21/19 16:52 06/21/19 16:52 06/21/19 16:52 06/21/19 16:52 06/21/19 16:52 Vital Signs Reviewed: Yes Appearance: Positive: Well-Appearing Skin: Positive: Warm Head/Face: Positive: Normal Head/Face Inspection Eyes: Positive: Normal Neck: Positive: Supple Respiratory/Lung Sounds: Positive: Clear to Auscultation Cardiovascular: Positive: Normal Abdomen Description: Positive: Nontender Musculoskeletal: Positive: Normal Neurological: Positive: Normal - 1 Psychiatric: Positive: Normal AVPU Assessment: Alert - Given 1.5 - Elian Coma Scale Best Eye Response: 4 - Spontaneous Best Motor Response: 6 - Obeys Commands Best Verbal Response: 5 - Oriented Coma Scale Total: 15 Diagnostics - Vital Signs Vital Signs Temp Pulse Resp BP Pulse Ox 06/22/19 01:08 18 06/22/19 01:00 73 19 98 06/22/19 00:34 75 23 130/79 99 06/22/19 00:04 65 21 132/79 98 06/22/19 00:03 76 21 98 06/21/19 23:27 98.3 F 73 18 134/82 97 06/21/19 20:35 98 F 70 20 133/84 99 06/21/19 18:10 98.1 F 93 18 141/91 97 06/21/19 16:52 98.0 F 60 20 136/74 99 - Laboratory Lab Results: Lab Results 06/21/19 06/21/19 06/21/19 Range/Units 17:17 17:17 17:17 WBC 10.4 (3.5-10.8) 10^3/uL RBC 4.13 (3.70-4.87) 10^6 /uL Hgb 12.8 (12.0-16.0) g/dL Hct 37 (35-47) % MCV 89 (80-97) fL MCH 31 (27-31) pg MCHC 35 (31-36) g/dL RDW 14 (10-15) % Plt Count 302 (150-450) 10^3/uL MPV 8.4 (7.4-10.4) fL Neut % (Auto) 65.3 % Lymph % (Auto) 25.4 % Barren % (Auto) 5.8 % Eos % (Auto) 2.3 % Baso % (Auto) 1.2 % Absolute Neuts (auto) 6.8 (1.5-7.7) 10^3/ul Absolute Lymphs (auto) 2.6 (1.0-4.8) 10^3/ul Absolute Monos (auto) 0.6 (0-0.8) 10^3/ul Absolute Eos (auto) 0.2 (0-0.6) 10^3/ul Absolute Basos (auto) 0.1 (0-0.2) 10^3/ul Absolute Nucleated RBC 0.0 10^3/ul Nucleated RBC % 0.0 INR (Anticoag Therapy) 0.95 (0.82-1.09) D-Dimer, Quantitative Cancelled Sodium 139 (135-145) mmol/L Potassium 3.5 (3.5-5.0) mmol/L Chloride 105 (101-111) mmol/L Carbon Dioxide 25 (22-32) mmol/L Anion Gap 9 (2-11) mmol/L BUN 13 (6-24) mg/dL Creatinine 0.86 (0.51-0.95) mg/dL Est GFR ( Amer) 92.0 (>60) Est GFR (Non-Af Amer) 76.0 (>60) BUN/Creatinine Ratio 15.1 (8-20) Glucose 112 H (70-100) mg/dL Calcium 9.4 (8.6-10.3) mg/dL Total Bilirubin 0.30 (0.2-1.0) mg/dL AST 18 (13-39) U/L ALT 18 (7-52) U/L Alkaline Phosphatase 101 (34-104) U/L Troponin I 0.00 (<0.04) ng/mL Total Protein 7.1 (6.4-8.9) g/dL Albumin 4.2 (3.2-5.2) g/dL Globulin 2.9 (2-4) g/dL Albumin/Globulin Ratio 1.4 (1-3) 06/21/19 06/21/19 06/22/19 Range/Units 20:43 23:39 01:55 WBC (3.5-10.8) 10^3/uL RBC (3.70-4.87) 10^6 /uL Hgb (12.0-16.0) g/dL Hct (35-47) % MCV (80-97) fL MCH (27-31) pg MCHC (31-36) g/dL RDW (10-15) % Plt Count (150-450) 10^3/uL MPV (7.4-10.4) fL Neut % (Auto) % Lymph % (Auto) % Barren % (Auto) % Eos % (Auto) % Baso % (Auto) % Absolute Neuts (auto) (1.5-7.7) 10^3/ul Absolute Lymphs (auto) (1.0-4.8) 10^3/ul Absolute Monos (auto) (0-0.8) 10^3/ul Absolute Eos (auto) (0-0.6) 10^3/ul Absolute Basos (auto) (0-0.2) 10^3/ul Absolute Nucleated RBC 10^3/ul Nucleated RBC % INR (Anticoag Therapy) (0.82-1.09) D-Dimer, Quantitative < 200 Sodium (135-145) mmol/L Potassium (3.5-5.0) mmol/L Chloride (101-111) mmol/L Carbon Dioxide (22-32) mmol/L Anion Gap (2-11) mmol/L BUN (6-24) mg/dL Creatinine (0.51-0.95) mg/dL Est GFR ( Amer) (>60) Est GFR (Non-Af Amer) (>60) BUN/Creatinine Ratio (8-20) Glucose (70-100) mg/dL Calcium (8.6-10.3) mg/dL Total Bilirubin (0.2-1.0) mg/dL AST (13-39) U/L ALT (7-52) U/L Alkaline Phosphatase (34-104) U/L Troponin I 0.00 0.00 (<0.04) ng/mL Total Protein (6.4-8.9) g/dL Albumin (3.2-5.2) g/dL Globulin (2-4) g/dL Albumin/Globulin Ratio (1-3) Result Diagrams: 06/21/19 17:17 06/21/19 17:17 Lab Statement: Any lab studies that have been ordered have been reviewed, and results considered in the medical decision making process. Chest Pain Course/Dx - Course Course Of Treatment: Patient complains of left-sided chest pain, left calf pain starting at noon today. Patient states chest pain is constant, no radiation, worse with deep inhalation. States history of same with anxiety. Patient also states she has a history of bilateral vertebral artery dissection, and is concerned that episodes of chest pain may be related to aortic dissection. Denies recent history of decreasing endurance, or CP and SOB with exertion. Patient normally on Plavix, states she has not taken it for the past week. Denies fever, cough, sore throat, SOB, N/V/D, abdominal pain, change in urine, change in BM. Vital signs within normal limits. Labs unremarkable. Serial troponins negative. D-dimer negative. EKG sinus rhythm, normal MI I, similar to prior. - Diagnoses Provider Diagnoses: Atypical chest pain, Muscle strain of left lower leg Discharge ED - Sign-Out/Discharge Documenting (check all that apply): Patient Departure Patient Received Moderate/Deep Sedation with Procedure: No - Discharge Plan Condition: Stable Disposition: HOME Patient Education Materials: Chest Pain (ED), Musculoskeletal Pain (ED) Referrals: Luli Macdonald MD [Primary Care Provider] - Additional Instructions: Follow-up with primary care. Return to the ED for any new or worsening symptoms. - Billing Disposition and Condition Condition: STABLE Disposition: Home
[2019-06-22 02:40] VITALS: BP 128/72
== END 2019-06-22 02:39 | disposition home or self-care (01) ==
LOC: ED 16:44
DX: R07.89 Other chest pain (principal); S86.912A Strain of unspecified muscle(s) and tendon(s) at lower leg level, left leg, initial encounter; X58.XXXA Exposure to other specified factors, initial encounter; Y92.9 Unspecified place or not applicable; Z88.1 Allergy status to other antibiotic agents; Z88.0 Allergy status to penicillin; Z88.2 Allergy status to sulfonamides; Z88.8 Allergy status to other drugs, medicaments and biological substances; Z87.891 Personal history of nicotine dependence
CPT/HCPCS: 36415; 80053; 84484; 85025; 85379; 85610; 93005; 99283; A9270-GY

== ENCOUNTER 2019-07-12 17:51 | Emergency (ER) | payer OTHER ==
[2019-07-12 18:12] VITALS: BP 133/82
--- NOTE | 2019-07-12 18:40 | UC ---
Throat Pain/Nasal Asad HPI - HPI Summary HPI Summary: 33 year old woman comes in with a chief complaint of upper respiratory tract infection symptoms for one day. She has minimal rhinorrhea she does have a sore throat she does have a dry cough. And occasional wheeze. No fevers measured. Her mother who has asthma and is visiting tomorrow and the patient wants to know if she has any infectious disease that she can pass onto her mother. - History of Current Complaint Chief Complaint: UCRespiratory Stated Complaint: COUGH, CONGESTION Time Seen by Provider: 07/12/19 18:22 Hx Last Menstrual Period: May 2019 Pain Intensity: 6 - Allergies/Home Medications Allergies/Adverse Reactions: Allergies Allergy/AdvReac Type Severity Reaction Status Date / Time amoxicillin Allergy Unknown Hives Verified 07/12/19 18:08 erythromycin base Allergy Unknown Hives Verified 07/12/19 18:08 Penicillins Allergy Unknown Hives Verified 07/12/19 18:08 Sulfa (Sulfonamide Allergy Unknown Hives Verified 07/12/19 18:08 Antibiotics) tetracycline Allergy Unknown Hives Verified 07/12/19 18:08 pediasole Allergy Unknown Hives Uncoded 07/12/19 18:08 PMH/Surg Hx/FS Hx/Imm Hx Previously Healthy: Yes - Surgical History Surgical History: Yes Surgery Procedure, Year, and Place: RT KNEE MENISCUS & ACL RECONSTRUCTION 05/2014 ;. DOUBLE HERNIA; WISDOM TEETH,. Abdominal surgery to drain internal bleeding March 2016 [facility]. Verterbral Artery surgery - Family History Known Family History: Negative: Cardiac Disease, Hypertension, Diabetes - Social History Alcohol Use: Rare Substance Use Type: None Smoking Status (MU): Former Smoker Type: Cigarettes Amount Used/How Often: smoked for 1-2 years didn't smoke every day When Did the Patient Quit Smoking/Using Tobacco: quit in 20's - Immunization History Most Recent Influenza Vaccination: 2014 Most Recent Tetanus Shot: 2015 Most Recent Pneumonia Vaccination: unknown Review of Systems All Other Systems Reviewed And Are Negative: Yes Constitutional: Positive: Other - SEE HPI Skin: Positive: Negative Eyes: Positive: Negative ENT: Positive: Sore Throat, Ear Ache, Nasal Discharge Respiratory: Positive: Cough Cardiovascular: Positive: Negative Gastrointestinal: Positive: Negative Motor: Positive: Negative Neurovascular: Positive: Negative Musculoskeletal: Positive: Negative Neurological: Positive: Negative Psychological: Positive: Negative Is Patient Immunocompromised?: No Physical Exam Triage Information Reviewed: Yes Appearance: Well-Appearing, No Pain Distress, Well-Nourished Vital Signs: Initial Vital Signs Temp 98.8 F 07/12/19 18:09 Pulse 81 07/12/19 18:09 Resp 18 07/12/19 18:09 BP 133/82 07/12/19 18:09 Pulse Ox 97 07/12/19 18:09 Vital Signs Reviewed: Yes Eye Exam: Normal Eyes: Positive: Conjunctiva Clear ENT: Positive: Pharyngeal erythema, Nasal congestion, Nasal drainage Neck: Positive: Supple Respiratory: Positive: Lungs clear, Normal breath sounds, No respiratory distress Cardiovascular: Positive: RRR Musculoskeletal: Positive: Strength Intact, ROM Intact Neurological: Positive: Alert Psychological: Positive: Age Appropriate Behavior Skin Exam: Normal Throat Pain/Nasal Course/Dx - Course Course Of Treatment: We discussed viral versus bacterial infections and the role of antibiotics. Given that her symptoms are 1 day old high probability of viral infection. Strep is negative influenza was negative. We discussed symptomatic treatment and how to avoid sharing infection with others. Get reevaluated if worse or not improving or any questions or concerns. - Differential Dx/Diagnosis Provider Diagnosis: Upper respiratory infection Discharge ED - Sign-Out/Discharge Documenting (check all that apply): Patient Departure All imaging exams completed and their final reports reviewed: No Studies - Discharge Plan Condition: Stable Disposition: HOME Patient Education Materials: Upper Respiratory Infection (ED) Referrals: Luli Macdonald MD [Primary Care Provider] - Additional Instructions: FOLLOW UP WITH YOUR DOCTOR IF NOT COMPLETELY IMPROVED. GET RECHECKED SOONER IF YOUR CONDITION WORSENS OR ANY QUESTIONS OR CONCERNS. - Billing Disposition and Condition Condition: STABLE Disposition: Home
[2019-07-12 19:00] LABS: Influenza A Molecular NEGATIVE (Negative); Influenza B Molecular NEGATIVE (Negative)
== END 2019-07-12 19:25 | disposition home or self-care (01) ==
LOC: UCEAST 17:51
DX: J06.9 Acute upper respiratory infection, unspecified (principal); Z88.1 Allergy status to other antibiotic agents; Z88.0 Allergy status to penicillin; Z88.2 Allergy status to sulfonamides; Z88.8 Allergy status to other drugs, medicaments and biological substances; Z87.891 Personal history of nicotine dependence
CPT/HCPCS: 87651; 99211; G0463

== ENCOUNTER 2019-08-01 19:22 | Emergency (ER) | payer OTHER ==
[2019-08-01 20:20] LABS: ABS Basophils 0.1 10^3/ul (0-0.2); ABS Eosinophils 0.2 10^3/ul (0-0.6); ABS Lymphocytes 2.6 10^3/ul (1.0-4.8); ABS Monocytes 0.5 10^3/ul (0-0.8); ABS Neutrophils 6.3 10^3/ul (1.5-7.7); Eosinophil % 1.7 %; Hematocrit 37 % (35-47); Hemoglobin 12.8 g/dL (12.0-16.0); Lymphocyte % 26.6 %; Mean Corpuscular HGB Conc 35 g/dL (31-36); Mean Corpuscular Hemoglobin 31 pg (27-31); Mean Corpuscular Volume 88 fL (80-97); Mean Platelet Volume 8.3 fL (7.4-10.4); Platelet Count 342 10^3/uL (150-450); Red Cell Distribution Width 14 % (10-15); White Blood Count 9.6 10^3/uL (3.5-10.8)
[2019-08-01 20:41] LABS: HCG Pregnancy < 0.60 mIU/mL
[2019-08-01 20:50] LABS: ALT 13 U/L (7-52); AST 14 U/L (13-39); Albumin 4.5 g/dL (3.2-5.2); Albumin/Globulin Ratio 1.4 (1-3); Alkaline Phosphatase 79 U/L (34-104); Anion Gap 7 mmol/L (2-11); Blood Urea Nitrogen 9 mg/dL (6-24); C Reactive Protein 3.45 mg/L (<8.01); CO2 Carbon Dioxide 25 mmol/L (22-32); Calcium 9.7 mg/dL (8.6-10.3); Chloride 105 mmol/L (101-111); EGFR African American 97.1 (>60); EGFR Non-African American 80.3 (>60); Globulin 3.2 g/dL (2-4); Glucose 101 mg/dL (70-100); Sodium 137 mmol/L (135-145); Total Protein 7.7 g/dL (6.4-8.9)
--- NOTE | 2019-08-01 21:19 | ED ---
Abdominal Pain/Female - HPI Summary HPI Summary: This patient is a 33 year old F presenting to [facility] accompanied by boyfriend with a chief complaint of periumbilical, and intermittent LLQ abdominal pain for the past week. The pain began with left sided abdominal and pelvic pain. Then it moved to the periumbilical region. Pt describes the pain as constant with sudden intermittent spikes of 10/10 pain. She describes the pain as tearing with an itching feeling. Symptoms aggravated by nothing. She reports when the tearing pain occurred today, she had just been laying down. Patient reports vomiting on 07/31/19, reddish orange blood in stool, and fever today. Patient denies loss of appetite, constipation and diarrhea. Pt has an Hx of PCOS , hernia surgery at 8 years old. Recently she was told she had 3 hernias on various scans. 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 This caused six cysts to develop, and in 2015 she needed to have surgery on a ruptured cyst. - History of Current Complaint Chief Complaint: James Stated Complaint: ABDOMINAL PAIN;BLOOD IN STOOL PER PT Time Seen by Provider: 08/01/19 20:23 Hx Obtained From: Patient Hx Last Menstrual Period: May 2019 ?: No Onset/Duration: Gradual Onset, Lasting Days, Still Present Timing: Days Severity Initially: Moderate Severity Currently: Severe Pain Intensity: 8 Pain Scale Used: 0-10 Numeric Location: Discrete At: LLQ, Other - periumbilical Character: Tearing Aggravating Factor(s): Nothing Alleviating Factor(s): Nothing Associated Signs and Symptoms: Positive: Fever, Blood in Stool, Vomiting. Negative: Diarrhea, Other: - Constipation, Loss of Appetite Allergies/Adverse Reactions: Allergies Allergy/AdvReac Type Severity Reaction Status Date / Time amoxicillin Allergy Unknown Hives Verified 08/01/19 19:29 erythromycin base Allergy Unknown Hives Verified 08/01/19 19:29 Penicillins Allergy Unknown Hives Verified 08/01/19 19:29 Sulfa (Sulfonamide Allergy Unknown Hives Verified 08/01/19 19:29 Antibiotics) sulfisoxazole Allergy Unknown Hives Verified 08/01/19 23:14 [From Pediazole] tetracycline Allergy Unknown Hives Verified 08/01/19 19:29 PMH/Surg Hx/FS Hx/Imm Hx Endocrine/Hematology History: Denies: Hx Diabetes, Hx Systemic Lupus Erythematosus, Hx Thyroid Disease, Hx Anemia Cardiovascular History: Reports: Hx Syncope - in the ED this visit, Other Cardiovascular Problems/Disorders - neck artery dissections x2 Denies: Hx Congestive Heart Failure, Hx Hypertension, Hx Pacemaker/ICD Respiratory History: Denies: Hx Asthma, Hx Chronic Obstructive Pulmonary Disease (COPD) GI History: Reports: Hx Gastroesophageal Reflux Disease, Hx Hiatal Hernia Denies: Hx Ulcer History: Reports: Other Problems/Disorders - frequent blood in urine and frequent urination Denies: Hx Dialysis, Hx Renal Disease Musculoskeletal History: Denies: Hx Rheumatoid Arthritis Sensory History: Denies: Hx Contacts or Glasses, Hx Deafness, Hx Hearing Aid Opthamlomology History: Denies: Hx Contacts or Glasses Neurological History: Reports: Hx Headaches, Hx Migraine, Hx Transient Ischemic Attacks (TIA) Psychiatric History: Reports: Hx Anxiety, Hx Depression Denies: Hx Panic Disorder - Cancer History Hx Chemotherapy: No - Surgical History Surgery Procedure, Year, and Place: RT KNEE MENISCUS & ACL RECONSTRUCTION 05/2014 ;. DOUBLE HERNIA; WISDOM TEETH,. Abdominal surgery to drain internal bleeding March 2016 [facility]. Verterbral Artery surgery Hx Anesthesia Reactions: No - Immunization History Date of Tetanus Vaccine: utd Date of Influenza Vaccine: none Infectious Disease History: No Infectious Disease History: Denies: Hx Hepatitis, Hx Human Immunodeficiency Virus (HIV), Traveled Outside the [place] in Last 30 Days - Family History Known Family History: Negative: Cardiac Disease, Hypertension, Diabetes - Social History Alcohol Use: Rare Hx Substance Use: No Substance Use Type: Reports: None Hx Tobacco Use: Yes Smoking Status (MU): Former Smoker Type: Cigarettes Amount Used/How Often: smoked for 1-2 years didn't smoke every day Review of Systems Positive: Fever. Negative: Other - Loss of appetite Gastrointestinal: Other - Blood in stool Positive: Abdominal Pain, Vomiting. Negative: Diarrhea, Other - Constipation All Other Systems Reviewed And Are Negative: Yes Physical Exam - Summary Physical Exam Summary: Appearance: Well-appearing, Well-nourished, lying in bed comfortably Skin: Warm, dry, no obvious rash Eyes: sclera anicteric, no conjunctival pallor ENT: mucous membranes moist, pharynx appears normal Neck: Supple, nontender Respiratory: Clear to auscultation, no signs of respiratory distress Cardiovascular: Normal S1, S2. No murmurs. Normal distal pulses in tibial and radial bilaterally. Abdomen: Soft, Mild lower abdominal tenderness, normal active bowel sounds present Musculoskeletal: Normal, Strength/ROM Intact Neurological: A&Ox3, awake and alert, mentation is normal, speech is fluent and appropriate Psychiatric: affect is normal, does not appear anxious or depressed Triage Information Reviewed: Yes Vital Signs On Initial Exam: Initial Vitals Temp Pulse Resp BP Pulse Ox 99.0 F 82 16 147/87 98 08/01/19 19:23 08/01/19 19:23 08/01/19 19:23 08/01/19 19:23 08/01/19 19:23 Vital Signs Reviewed: Yes Procedures - Sedation Patient Received Moderate/Deep Sedation with Procedure: No Diagnostics - Vital Signs Vital Signs Temp Pulse Resp BP Pulse Ox 08/01/19 19:23 99.0 F 82 16 147/87 98 - Laboratory Lab Results: Lab Results 08/01/19 08/01/19 08/01/19 Range/Units 20:08 20:08 20:08 WBC 9.6 (3.5-10.8) 10^3/uL RBC 4.20 (3.70-4.87) 10^6 /uL Hgb 12.8 (12.0-16.0) g/dL Hct 37 (35-47) % MCV 88 (80-97) fL MCH 31 (27-31) pg MCHC 35 (31-36) g/dL RDW 14 (10-15) % Plt Count 342 (150-450) 10^3/uL MPV 8.3 (7.4-10.4) fL Neut % (Auto) 65.3 % Lymph % (Auto) 26.6 % Rooks % (Auto) 5.3 % Eos % (Auto) 1.7 % Baso % (Auto) 1.1 % Absolute Neuts (auto) 6.3 (1.5-7.7) 10^3/ul Absolute Lymphs (auto) 2.6 (1.0-4.8) 10^3/ul Absolute Monos (auto) 0.5 (0-0.8) 10^3/ul Absolute Eos (auto) 0.2 (0-0.6) 10^3/ul Absolute Basos (auto) 0.1 (0-0.2) 10^3/ul Absolute Nucleated RBC 0.0 10^3/ul Nucleated RBC % 0.0 Sodium 137 (135-145) mmol/L Potassium 4.0 (3.5-5.0) mmol/L Chloride 105 (101-111) mmol/L Carbon Dioxide 25 (22-32) mmol/L Anion Gap 7 (2-11) mmol/L BUN 9 (6-24) mg/dL Creatinine 0.82 (0.51-0.95) mg/dL Est GFR ( Amer) 97.1 (>60) Est GFR (Non-Af Amer) 80.3 (>60) BUN/Creatinine Ratio 11.0 (8-20) Glucose 101 H (70-100) mg/dL Lactic Acid 1.4 (0.5-2.0) mmol/L Calcium 9.7 (8.6-10.3) mg/dL Total Bilirubin 0.40 (0.2-1.0) mg/dL AST 14 (13-39) U/L ALT 13 (7-52) U/L Alkaline Phosphatase 79 (34-104) U/L C-Reactive Protein 3.45 (<8.01) mg/L Total Protein 7.7 (6.4-8.9) g/dL Albumin 4.5 (3.2-5.2) g/dL Globulin 3.2 (2-4) g/dL Albumin/Globulin Ratio 1.4 (1-3) Lipase 18 (11.0-82.0) U/L Beta HCG, Quant < 0.60 mIU/mL Result Diagrams: 08/01/19 20:08 08/01/19 20:08 Lab Statement: Any lab studies that have been ordered have been reviewed, and results considered in the medical decision making process. - Radiology CXR Radiology Interpretation Completed By: ED Physician Summary of Radiographic Findings: CXR reveals per ED Physician, no acute processes. Pending official radiology report. - CT Abdomen CT CT Interpretation Completed By: Radiologist Summary of CT Findings: Abdomen CT reveals, per radiologist, IMPRESSION: No CT findings to correlate with patient's symptomatology. ED physician has reviewed this radiology report. Chest/Thorax CTA CT Interpretation Completed By: Radiologist Summary of CT Findings: Chest/Thorax CTA reveals per radiologist,. IMPRESSION: No acute findings. No filling defects suspicious for pulmonary emboli are seen. There is no CT evidence of aortic dissection nor leakage. No aortic aneurysm is appreciated. ED physician has reviewed this radiology report. - Ultrasound Pelvis/Transvag US Ultrasound Interpretation Completed By: Radiologist Summary of Ultrasound Findings: Pelvis/Transvag US reveals, per radiologist, IMPRESSION: Sonographically normal uterus and ovaries. ED physician has reviewed this radiology report. Re-Evaluation - Re-Evaluation First Eval Comment: Discussed results of US Second Eval Re-Evaluation Time: 04:13 Comment: Discussed results of CT. Third Eval Re-Evaluation Time: 06:00 Comment: Discussed results with pt. Abdominal Pain Fem Course/Dx - Course Course Of Treatment: This patient is a 33 year old F presenting to [facility] accompanied by boyfriend with a chief complaint of periumbilical, and intermittent LLQ abdominal pain for the past week. The pain began with left sided abdominal and pelvic pain. Then it moved to the periumbilical region. Pt describes the pain as constant with sudden intermittent spikes of 10/10 pain. She describes the pain as tearing with an itching feeling. Symptoms aggravated by nothing. She reports when the tearing pain occurred today, she had just been laying down. Patient reports vomiting on 07/31/19, reddish orange blood in stool , and fever today. Patient denies loss of appetite, constipation and diarrhea. Pt has an Hx of PCOS, hernia surgery at 8 years old. Recently she was told she had 3 hernias on various scans. 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 This caused six cysts to develop, and in 2016 she needed to have surgery on a ruptured cyst. Physical exam findings are nml except, mild lower abdominal tenderness. Blood work obtained. Glucose is 101. Stool Occult Blood is negative. Abdomen CT reveals, per radiologist, IMPRESSION: No CT findings to correlate with patient's symptomatology. ED physician has reviewed this radiology report. Pelvis/ Transvag US reveals, per radiologist, IMPRESSION: Sonographically normal uterus and ovaries. CXR reveals per ED Physician, no acute processes. Pending official radiology report. Chest/Thorax CTA reveals per radiologist,. IMPRESSION: No acute findings. No filling defects suspicious for pulmonary emboli are seen. There is no CT evidence of aortic dissection nor leakage. No aortic aneurysm is appreciated. In the ED course the patient was given Toradol , lorazepam, zofran and fluids. Despite very extensive evaluation, no cause for patient's pain has been found. Her symptoms morphed somewhat during the visit, beginning with abdominal pain then more of a mid chest pain complaints. Patient will be discharged. The patient is agreeable with this plan. - Diagnoses Provider Diagnoses: Abdominal pain Discharge ED - Sign-Out/Discharge Documenting (check all that apply): Patient Departure - Discharge - Discharge Plan Condition: Good Disposition: HOME Prescriptions: Pantoprazole TAB * [Protonix TAB*] 40 mg PO DAILY #30 tab Patient Education Materials: Abdominal Pain (ED) Referrals: Luli Macdonald MD [Primary Care Provider] - Additional Instructions: The blood tests and imaging were all normal. I am not sure what is causing your pain. You can take OTC pain medication for now, but please call your regular doctor in the morning for a followup. - Billing Disposition and Condition Condition: GOOD Disposition: Home - Attestation Statements Document Initiated by Vitaliye: Yes Documenting Scribe: Louise Myers Provider For Whom Angelina is Documenting (Include Credential): Pierre Langley MD Scribe Attestation: Louise Gomez, scribed for Pierre Langley MD on 08/04/19 at 1913. Scribe Documentation Reviewed: Yes Provider Attestation: The documentation as recorded by the Louise peres accurately reflects the service I personally performed and the decisions made by me, Pierre Langley MD Status of Scribe Document: Viewed
[2019-08-01] MEDS ORDERED: Ketorolac INJ* 30 MG/ML 1 ML VIAL IV PUSH ONE (21:20)
[2019-08-01] MEDS ORDERED: LORazepam TAB(*) 1 MG PO ONE (21:20)
[2019-08-01] MEDS ORDERED: NS 0.9% 1000 ML** 1,000 ML IV ONE (21:20)
[2019-08-01] MEDS ORDERED: Morphine 4 MG/ML VIAL (1 ml) 4 MG/ML VIAL IV PRN (23:11)
[2019-08-01] MEDS ORDERED: Iohexol 300* (CONTRAST) 10 ML SDV IV ONE (23:58)
[2019-08-02] MEDS ORDERED: NS 0.9% 1000 ML** 1,000 ML IV ONE (00:16)
[2019-08-02] MEDS ORDERED: Ondansetron INJ* 2 MG/ML VIAL IV ONE (00:16)
[2019-08-02] MEDS ORDERED: Lidocaine 2% VISCOUS* 15 ML UDC ONE (02:07)
[2019-08-02] MEDS ORDERED: Al Hydrox/Mg Hydrox/Simet LIQ* 30 ML UDC ONE (02:07)
[2019-08-02] MEDS ORDERED: Iohexol 350* (CONTRAST) 500 ML MDV IV ONE (05:11)
[2019-08-02 06:13] VITALS: BP 109/72
== END 2019-08-02 06:10 | disposition home or self-care (01) ==
LOC: ED 19:22
DX: R10.9 Unspecified abdominal pain (principal); K21.9 Gastro-esophageal reflux disease without esophagitis; F41.9 Anxiety disorder, unspecified; F32.9 Major depressive disorder, single episode, unspecified; Z87.891 Personal history of nicotine dependence; Z88.1 Allergy status to other antibiotic agents; Z88.0 Allergy status to penicillin; Z88.2 Allergy status to sulfonamides
CPT/HCPCS: 36415; 71046; 71275; 74177; 76830; 76856; 80053; 82270; 83605; 83690; 84702; 85025; 86140; 96361; 96374; 96375; 99284; A9270-GY; J1885; J2270; J2405; Q9967

== ENCOUNTER 2019-11-28 21:42 | Emergency (ER) | payer OTHER ==
[2019-11-28 21:56] VITALS: BP 112/72
--- NOTE | 2019-11-28 22:05 | UC ---
FLU HPI - HPI Summary HPI Summary: 34 yo woman with onset of vomiting, malaise and mild sore throat. She has had 2 episodes of emesis this afternoon, and has tolerated sips of fluid since then. She had a flu exposure 2 days ago, and is concerned about upcoming surgery for treatment of endometriosus within the next 2 weeks (date not set). Now tolerating clear fluids, and has voided within the past hour. - History of Current Complaint Chief Complaint: UCRespiratory Stated Complaint: VOMITING Time Seen by Provider: 11/28/19 21:50 Hx Obtained From: Patient Hx Last Menstrual Period: 11/04/19 Onset/Duration: Sudden Onset Pain Intensity: 7 Associated Signs & Symptoms: Positive: Sore Throat, Vomiting - Allergy/Home Medications Allergies/Adverse Reactions: Allergies Allergy/AdvReac Type Severity Reaction Status Date / Time amoxicillin Allergy Unknown Hives Verified 11/28/19 21:57 erythromycin base Allergy Unknown Hives Verified 11/28/19 21:57 Penicillins Allergy Unknown Hives Verified 11/28/19 21:57 Sulfa (Sulfonamide Allergy Unknown Hives Verified 11/28/19 21:57 Antibiotics) sulfisoxazole Allergy Unknown Hives Verified 11/28/19 21:57 [From Pediazole] tetracycline Allergy Unknown Hives Verified 11/28/19 21:57 Home Medications: Home Medications Hydrocodone/Acetaminophen [Hydrocodone-Acetamin 5-325 mg] 1 tab PO QID 11/28/19 [History Confirmed 11/28/19] Lisdexamfetamine Dimesylate [Vyvanse] 40 mg PO DAILY 11/28/19 [History Confirmed 11/28/19] PMH/Surg Hx/FS Hx/Imm Hx Cardiovascular History: Other - reports history of vertebral artery dissection. GI/ History: Other - enodmetriosus - Surgical History Surgical History: Yes Surgery Procedure, Year, and Place: RT KNEE MENISCUS & ACL RECONSTRUCTION 05/2014 ;. DOUBLE HERNIA; WISDOM TEETH,. Abdominal surgery to drain internal bleeding March 2016 [facility]. Verterbral Artery surgery - Family History Known Family History: Positive: Non-Contributory Negative: Cardiac Disease, Hypertension, Diabetes - Social History Occupation: Unemployed Lives: With Family Alcohol Use: None Substance Use Type: Marijuana Substance Use Comment - Amount & Last Used: medical Smoking Status (MU): Former Smoker Type: Cigarettes Amount Used/How Often: smoked for 1-2 years didn't smoke every day When Did the Patient Quit Smoking/Using Tobacco: quit in 20's - Immunization History Most Recent Influenza Vaccination: 2014 Most Recent Tetanus Shot: 2014 Most Recent Pneumonia Vaccination: unknown Review of Systems All Other Systems Reviewed And Are Negative: Yes Constitutional: Positive: Negative ENT: Positive: Sore Throat Cardiovascular: Positive: Chest Pain - reports history of chest pain related to endometriosus Gastrointestinal: Positive: Abdominal Pain - has chronic abdominal pain which she attributes to endometriosus. Physical Exam Triage Information Reviewed: Yes Appearance: No Pain Distress, Well-Nourished Vital Signs: Initial Vital Signs Temp 98.7 F 11/28/19 21:50 Pulse 87 11/28/19 21:50 Resp 16 11/28/19 21:50 BP 112/72 11/28/19 21:50 Pulse Ox 97 11/28/19 21:50 ENT: Positive: Pharynx normal, TMs normal Neck: Positive: Supple, Nontender, No Lymphadenopathy Respiratory: Positive: Lungs clear, Normal breath sounds Cardiovascular: Positive: RRR, No Murmur Abdomen Description: Positive: Nontender, No Organomegaly, Soft Musculoskeletal Exam: Normal Neurological Exam: Normal Psychological Exam: Normal Skin Exam: Normal Diagnostics - Laboratory Lab Results: rapid flu negative Flu Course/Dx - Course Course Of Treatment: Comes for assessment early in course of illness, with rapid flu testing negative , and without findings which are highly suggestive of flu. Advised hydration, rest and follow up with Dr. Macdonadl or to return here if symptoms progress. Discussed could elect Tamiflu based on exposure but at this time she deferred. Declined zofran. - Differential Dx/Diagnosis Differential Diagnosis/HQI/PQRI: Influenza, Other - viral syndrome. Provider Diagnosis: Viral syndrome Discharge ED - Sign-Out/Discharge Documenting (check all that apply): Patient Departure All imaging exams completed and their final reports reviewed: No Studies - Discharge Plan Condition: Good Disposition: HOME Patient Education Materials: Viral Syndrome (ED) Referrals: Luli Macdonald MD [Primary Care Provider] - Additional Instructions: Your test for flu is currently negative. At this time, continue regular intake of fluids. If your symptoms progress, please follow up either here or with Dr. Macdonald. - Billing Disposition and Condition Condition: GOOD Disposition: Home
[2019-11-28 22:18] LABS: Influenza A Molecular Negative (Negative); Influenza B Molecular Negative (Negative)
== END 2019-11-28 22:32 | disposition home or self-care (01) ==
LOC: UCEAST 21:42
DX: B34.9 Viral infection, unspecified (principal); J02.9 Acute pharyngitis, unspecified; R07.9 Chest pain, unspecified; R11.10 Vomiting, unspecified; R10.9 Unspecified abdominal pain; Z88.0 Allergy status to penicillin; Z88.1 Allergy status to other antibiotic agents; Z88.2 Allergy status to sulfonamides; Z87.891 Personal history of nicotine dependence
CPT/HCPCS: 99211; G0463